=== PATIENT | female | born 1935 | race Hispanic/Latino ===

== ENCOUNTER 2018-04-13 10:37 | Emergency (ER) | payer OTHER ==
[2018-04-13 12:38] LABS: Absolute Lymphocytes (CBC) 1.1 K/uL (0.7-4.9); Absolute Monocytes 0.5 K/uL (0.1-1.3); Absolute Neutrophil 5.5 K/uL (1.8-8.0); Basophils % 0.8 % (0-1.3); Eosinophils % 4.3 % (0-4.4); MCH 27.6 pg (27.0-35.0); MCV 84.3 fL (80-100); MPV 9.5 fL (7.6-11.3); Monocytes % 6.4 % (3.3-12.3); RBC Red Blood Cell Count 4.27 M/uL (3.86-4.86)
[2018-04-13 12:47] LABS: Urine Blood NEGATIVE (NEG); Urine Glucose NEGATIVE (NEG); Urine Protein NEGATIVE (NEG); Urine Specific Gravity 1.015 (1.005-1.030); Urine pH 5.5 (5.0-7.0)
[2018-04-13 12:50] LABS: Potassium 5.1 mEq/L (3.6-5.0)
--- NOTE | 2018-04-13 12:54 | RAD REPORT ---
EXAM DESCRIPTION: Dwaine Pa And Lat (2 Views)04/13/2018 12:48 pm CLINICAL HISTORY: Chest pain COMPARISON: December 2016 FINDINGS: Bilateral interstitial lung opacities are without obvious change. I suspect most if not a ll are chronic. A lung consolidation is not seen. The heart is mildly enlarged
[2018-04-13 12:56] LABS: Albumin 3.8 g/dL (3.2-5.5); Bilirubin Direct 0.1 mg/dL (0-0.2); Bilirubin Total 0.2 mg/dL (0.3-1.2); Protein, Total 8.4 g/dL (6.0-8.3)
[2018-04-13] MEDS ORDERED: HYDROCODONE/APAP 5/325 MG TAB ONE (13:33)
[2018-04-13 13:54] LABS: Urine Bacteria 20-50 /HPF (<20); Urine Culture Reflex Order REFLEXED; Urine RBC <5 /HPF (NONE SEEN)
--- NOTE | 2018-04-13 16:34 | ER ---
Nurse's Notes [facility] Name: Martha Tobar Age: 82 yrs Sex: Female : 1935 Arrival Date: 04/13/2018 Time: 10:41 Bed 6 Private MD: Raymon Johnson Diagnosis: Urinary tract infection, site not specified;Strain of muscle and tendon of front wall of thorax Presentation: 04/13 10:48 Presenting complaint: Patient states: right side pain under right arm x1 week. Denies sv injury. Daughter reports her O2 sat has been low, they saw their PCP and nothing was done for it. Transition of care: patient was not received from another setting of care. Onset of symptoms was April 06, 2018. 10:48 Method Of Arrival: Ambulatory sv 10:48 Acuity: RIGOBERTO 3 sv 10:49 Risk Assessment: Do you want to hurt yourself or someone else? Patient reports no sv desire to harm self or others. Care prior to arrival: None. 14:24 Initial Sepsis Screen: Does the patient meet any 2 criteria? No. Patient's initial ph sepsis screen is negative. Does the patient have a suspected source of infection? No. Patient's initial sepsis screen is negative. Historical: - Allergies: 10:54 No Known Allergies; sv - Home Meds: 10:54 Metoprolol Tartrate Oral [Active]; amlodipine oral [Active]; letrozole oral oral sv [Active]; Levemir subcutaneous subcutaneous [Active]; Lovastatin Oral [Active]; Metformin Oral [Active]; Omeprazole Oral [Active]; sertraline oral oral [Active]; valsartan oral oral [Active]; Lyrica Oral [Active]; tramadol Oral [Active]; 10:56 duloxetine oral oral [Active]; topiramate oral oral [Active]; sv - PMHx: 10:54 Hypertension; GERD; Diabetes - IDDM; sv 10:56 Depression; sv - PSHx: 10:54 Cholecystectomy; right mastectomy; oophorectomy; sv - Immunization history:: Adult Immunizations up to date. - Social history:: Smoking status: Patient/guardian denies using tobacco, the patient reports quitting approximately 10 years ago. - Ebola Screening: : No symptoms or risks identified at this time. Screenin:35 Abuse screen: Denies threats or abuse. Denies injuries from another. Nutritional ph screening: No deficits noted. Tuberculosis screening: No symptoms or risk factors identified. 15:08 Fall Risk No fall in past 12 months (0 pts). No secondary diagnosis (0 pts). IV access ph (20 points). Ambulatory Aid- Crutches/Cane/Walker (15 pts). Gait- Normal/Bed Rest/Wheelchair (0 pts) Mental Status- Oriented to own ability (0 pts). Total Delarosa Fall Scale indicates Low Risk Score (25-44 pts). Fall prevention measures have been instituted. Side Rails Up X 2 Placed close to Nursing Station Frequent Obs/Assesments occuring Family Present and informed to notify staff if they need to leave bedside As available Patient and Family Educated on Fall Prevention Program and strategies. Assessment: 12:00 General: Appears in no apparent distress. comfortable, well groomed, Behavior is calm, ph cooperative, appropriate for age, Denies fever, feeling ill. Pain: Complains of pain in right lateral anterior chest. Neuro: Level of Consciousness is awake, alert, obeys commands, Oriented to person, place, time, situation. Cardiovascular: Capillary refill < 3 seconds Patient's skin is warm and dry. Respiratory: Airway is patent Respiratory effort is even, unlabored, Respiratory pattern is regular, symmetrical, Denies cough, shortness of breath. GI: No signs and/or symptoms were reported involving the gastrointestinal system. Derm: Skin is intact, is healthy with good turgor, Skin is pink, warm \T\ dry. Musculoskeletal: Circulation, motion, and sensation intact. Range of motion: intact in all extremities, Swelling absent. 13:30 Reassessment: Patient appears in no apparent distress at this time. Patient and/or ph family updated on plan of care and expected duration. Pain level reassessed. Patient is alert, oriented x 3, equal unlabored respirations, skin warm/dry/pink. 14:30 Reassessment: Patient appears in no apparent distress at this time. Patient and/or ph family updated on plan of care and expected duration. Pain level reassessed. Patient is alert, oriented x 3, equal unlabored respirations, skin warm/dry/pink. 15:30 Reassessment: Patient appears in no apparent distress at this time. Patient and/or ph family updated on plan of care and expected duration. Pain level reassessed. Patient is alert, oriented x 3, equal unlabored respirations, skin warm/dry/pink. 16:57 Reassessment: Patient appears in no apparent distress at this time. Patient and/or ph family updated on plan of care and expected duration. Pain level reassessed. Patient is alert, oriented x 3, equal unlabored respirations, skin warm/dry/pink. Pt discharged home with family. Vital Signs: 10:54 BP 134 / 92; Pulse 62; Resp 20; Pulse Ox 94% on R/A; Weight 77.56 kg; Height 5 ft. 0 sv in. (152.40 cm); 13:38 BP 140 / 56; Pulse 62; Resp 18; Pulse Ox 91% on R/A; ph 15:07 BP 143 / 55; Pulse 55; Resp 18; Pulse Ox 99% on 2 lpm NC; ph 16:00 BP 142 / 54; Pulse 56; Resp 18; Pulse Ox 98% on 2 lpm NC; ph 16:58 BP 139 / 56; Pulse 54; Resp 16; Temp 97.9; Pulse Ox 95% on R/A; ph 10:54 Body Mass Index 33.39 (77.56 kg, 152.40 cm) sv ED Course: 10:41 Patient arrived in ED. sb2 10:41 Raymon Johnson MD is Private Physician. sb2 10:51 Triage completed. sv 11:44 Kaveh Wisdom, KAREY is PHCP. pm1 11:44 Benjamin Valladares MD is Attending Physician. pm1 11:58 Florinda Diaz, RN is Primary Nurse. ph 12:25 Initial lab(s) drawn, by la, sent to lab. Inserted saline lock: 22 gauge in left dh3 antecubital area, using aseptic technique. Blood collected. 12:35 Arm band placed on. ph 12:35 Patient has correct armband on for positive identification. Placed in gown. Bed in low ph position. Call light in reach. Side rails up X 1. Pulse ox on. NIBP on. Warm blanket given. 12:39 Urine collected: hat, rody. dh3 12:46 X-ray completed. Patient tolerated procedure well. la2 12:46 Chest Pa And Lat (2 Views) XRAY In Process Unspecified. EDMS 16:33 Raymon Johnson MD is Referral Physician. pm1 17:00 No provider procedures requiring assistance completed. IV discontinued, intact, ph bleeding controlled, No redness/swelling at site. Pressure dressing applied. Administered Medications: 13:37 Drug: HYDROcodone-acetaminophen 5 mg-325 mg 1 tabs Route: PO; ph 16:56 Follow up: Response: No adverse reaction ph 16:56 Drug: Kayexalate 30 grams Route: PO; ph 16:56 Follow up: Response: No adverse reaction ph Outcome: 16:33 Discharge ordered by . pm1 16:59 Patient left the ED. ph 17:00 Discharged to home ambulatory, with family. ph 17:00 Condition: good 17:00 Discharge instructions given to patient, family, Instructed on discharge instructions, follow up and referral plans. medication usage, Demonstrated understanding of instructions, follow-up care, medications, Prescriptions given X 1. Addendum: 04/16/2018 09:40 Addendum: Culture Results: Positive urine culture. No further action required. Bacteria i w sensitive to prescribed antibiotic. Signatures: Dispatcher [employer] EDBrianna Cruz RN RN sv Williams, Irene, RN RN Florinda Diaz RN RN ph Kaveh Wisdom, KAREY INPATIENT PHARMACIST pm1 Kimber Tovar 3 Deann Whittaker2 Joann Ramirez sb2 Corrections: (The following items were deleted from the chart) 04/13 10:56 10:54 BP 134 / 92; Pulse 62bpm; Resp 20bpm; Pulse Ox 92% RA; 77.56 kg; Height 5 ft. 0 sv in.; BMI: 33.4; sv 16:59 15:07 BP 143 / 55; Pulse 55bpm; Resp 18bpm; Pulse Ox 99% RA; ph ph
--- NOTE | 2018-04-13 16:34 | EDPHYS ---
Physician Documentation [facility] Name: Martha Tobar Age: 82 yrs Sex: Female : 1935 Arrival Date: 04/13/2018 Time: 10:41 Bed 6 Private MD: Raymon Johnson ED Physician Benjamin Valladares HPI: 04/13 13:00 This 82 yrs old Female presents to ER via Ambulatory with complaints of Right pm1 Side Pain. 13:00 This 82 yrs old Female presents to ER via Ambulatory with complaints of Right pm1 lower rib Pain. 13:00 Onset: The symptoms/episode began/occurred 3 week(s) ago. Associated signs and pm1 symptoms: Pertinent positives: Pertinent negatives: chest pain, cough, diarrhea, fever, shortness of breath. Modifying factors: The patient symptoms are alleviated by nothing, the patient symptoms are aggravated by movement of right arm and palpation. The patient has been recently seen by a physician: the patient's primary care provider. Historical: - Allergies: 10:54 No Known Allergies; sv - Home Meds: 10:54 Metoprolol Tartrate Oral [Active]; amlodipine oral [Active]; letrozole oral oral sv [Active]; Levemir subcutaneous subcutaneous [Active]; Lovastatin Oral [Active]; Metformin Oral [Active]; Omeprazole Oral [Active]; sertraline oral oral [Active]; valsartan oral oral [Active]; Lyrica Oral [Active]; tramadol Oral [Active]; 10:56 duloxetine oral oral [Active]; topiramate oral oral [Active]; sv - PMHx: 10:54 Hypertension; GERD; Diabetes - IDDM; sv 10:56 Depression; sv - PSHx: 10:54 Cholecystectomy; right mastectomy; oophorectomy; sv - Immunization history:: Adult Immunizations up to date. - Social history:: Smoking status: Patient/guardian denies using tobacco, the patient reports quitting approximately 10 years ago. - Ebola Screening: : No symptoms or risks identified at this time. ROS: 13:00 Constitutional: Negative for fever, chills, and weight loss, Eyes: Negative for injury, pm1 pain, redness, and discharge, ENT: Negative for injury, pain, and discharge, Neck: Negative for injury, pain, and swelling, Respiratory: Negative for shortness of breath, cough, wheezing, and pleuritic chest pain, Abdomen/GI: Negative for abdominal pain, nausea, vomiting, diarrhea, and constipation. 13:00 Back: Negative for injury and pain, MS/Extremity: Negative for injury and deformity, Skin: Negative for injury, rash, and discoloration, Neuro: Negative for headache, weakness, numbness, tingling, and seizure. 13:00 Cardiovascular: Negative for chest pain, edema, palpitations. Exam: 13:00 Constitutional: This is a well developed, well nourished patient who is awake, alert, pm1 and in no acute distress. Head/Face: Normocephalic, atraumatic. Eyes: Pupils equal round and reactive to light, extra-ocular motions intact. Lids and lashes normal. Conjunctiva and sclera are non-icteric and not injected. Cornea within normal limits. Periorbital areas with no swelling, redness, or edema. ENT: Nares patent. No nasal discharge, no septal abnormalities noted. Tympanic membranes are normal and external auditory canals are clear. Oropharynx with no redness, swelling, or masses, exudates, or evidence of obstruction, uvula midline. Mucous membranes moist. Neck: Trachea midline, no thyromegaly or masses palpated, and no cervical lymphadenopathy. Supple, full range of motion without nuchal rigidity, or vertebral point tenderness. No Meningismus. 13:00 Cardiovascular: Regular rate and rhythm with a normal S1 and S2. No gallops, murmurs, or rubs. Normal PMI, no JVD. No pulse deficits. Respiratory: Lungs have equal breath sounds bilaterally, clear to auscultation and percussion. No rales, rhonchi or wheezes noted. No increased work of breathing, no retractions or nasal flaring. Abdomen/GI: Soft, non-tender, with normal bowel sounds. No distension or tympany. No guarding or rebound. No evidence of tenderness throughout. Back: No spinal tenderness. No costovertebral tenderness. Full range of motion. Skin: Warm, dry with normal turgor. Normal color with no rashes, no lesions, and no evidence of cellulitis. MS/ Extremity: Pulses equal, no cyanosis. Neurovascular intact. Full, normal range of motion. 13:00 Chest/axilla: Inspection: right mastectomy , Palpation: tenderness, of the right breast area, that totally reproduces the patient's complaints. 13:00 Neuro: Orientation: is normal, Motor: is normal, moves all fours, strength is normal, strength is 5/5 in all extremities, Gait: is steady, at a normal pace, without difficulty. Vital Signs: 10:54 BP 134 / 92; Pulse 62; Resp 20; Pulse Ox 94% on R/A; Weight 77.56 kg; Height 5 ft. 0 sv in. (152.40 cm); 13:38 BP 140 / 56; Pulse 62; Resp 18; Pulse Ox 91% on R/A; ph 15:07 BP 143 / 55; Pulse 55; Resp 18; Pulse Ox 99% on 2 lpm NC; ph 16:00 BP 142 / 54; Pulse 56; Resp 18; Pulse Ox 98% on 2 lpm NC; ph 16:58 BP 139 / 56; Pulse 54; Resp 16; Temp 97.9; Pulse Ox 95% on R/A; ph 10:54 Body Mass Index 33.39 (77.56 kg, 152.40 cm) sv MDM: 12:06 Patient medically screened. pm1 16:30 ED course: Hyperkalemia 5.1 on 3.6 to 5.0 range likely related to mild prerenal pm1 azotemia or use of ARB for blood pressure management. Patient drinks only 2 bottles of water daily. Patient offered IV fluids bur patient refused. She wants to go home and reports that she will drink more water. 16:32 Data reviewed: vital signs. Data interpreted: Pulse oximetry: on room air is 99 %. pm1 Interpretation: normal. Counseling: I had a detailed discussion with the patient and/or guardian regarding: the historical points, exam findings, and any diagnostic results supporting the discharge/admit diagnosis, lab results, radiology results, the need for outpatient follow up, to return to the emergency department if symptoms worsen or persist or if there are any questions or concerns that arise at home. 04/13 12:07 Order name: Basic Metabolic Panel; Complete Time: 13:50 pm1 04/13 12:07 Order name: CBC with Diff; Complete Time: 12:59 pm1 04/13 12:07 Order name: Hepatic Function; Complete Time: 13:50 pm1 04/13 12:07 Order name: Lipase; Complete Time: 13:50 pm1 04/13 12:07 Order name: Urine Microscopic Only; Complete Time: 16:10 pm1 04/13 12:43 Order name: Urine Dipstick--Ancillary (enter results); Complete Time: 12:59 em1 04/13 12:07 Order name: IV Saline Lock; Complete Time: 12:26 pm1 04/13 12:07 Order name: Labs collected and sent; Complete Time: 12:26 pm1 04/13 12:07 Order name: Urine Dipstick-Ancillary (obtain specimen); Complete Time: 12:40 pm1 04/13 12:07 Order name: Chest Pa And Lat (2 Views) XRAY; Complete Time: 12:59 pm1 04/13 13:55 Order name: Urine Culture EDMS Administered Medications: 13:37 Drug: HYDROcodone-acetaminophen 5 mg-325 mg 1 tabs Route: PO; ph 16:56 Follow up: Response: No adverse reaction ph 16:56 Drug: Kayexalate 30 grams Route: PO; ph 16:56 Follow up: Response: No adverse reaction ph Disposition: 19:01 Co-signature as Attending Physician, Benjamin Valladares MD. Disposition: 04/13/18 16:33 Discharged to Home. Impression: Urinary tract infection, site not specified, Strain of muscle and tendon of front wall of thorax. - Condition is Stable. - Discharge Instructions: Hyperkalemia, Muscle Strain, Urinary Tract Infection. - Prescriptions for Bactrim DS 800- 160 mg Oral Tablet - take 1 tablet by ORAL route every 12 hours for 10 days; 20 tablet. - Medication Reconciliation Form, Thank You Letter, Antibiotic Education form. - Follow up: Emergency Department; When: As needed; Reason: Worsening of condition. Follow up: Raymon Johnson MD; When: 2 - 3 days; Reason: Recheck today's complaints, Continuance of care, Re-evaluation by your physician. - Problem is new. - Symptoms have improved. Signatures: Dispatcher [employer] EDMS Brianna Rogers RN RN sv Hall, Patricia, RN RN ph Kaveh Wisdom, [employer] CERTIFIED ORTHOTIST [employer] CERTIFIED ORTHOTIST pm1 Benjamin Valladares MD MD Corrections: (The following items were deleted from the chart) 16:35 16:33 04/13/2018 16:33 Discharged to Home. Impression: Urinary tract infection, site pm1 not specified. Condition is Stable. Forms are Medication Reconciliation Form, Thank You Letter, Antibiotic Education, Prescription Opioid Use. Follow up: Emergency Department; When: As needed; Reason: Worsening of condition. Follow up: Raymon Johnson; When: 2 - 3 days; Reason: Recheck today's complaints, Continuance of care, Re-evaluation by your physician. Problem is new. Symptoms have improved. pm1 16:59 16:35 04/13/2018 16:33 Discharged to Home. Impression: Urinary tract infection, site ph not specified; Strain of muscle and tendon of front wall of thorax. Condition is Stable. Discharge Instructions: Urinary Tract Infection. Prescriptions for Bactrim DS 800-160 mg Oral Tablet - take 1 tablet by ORAL route every 12 hours for 10 days; 20 tablet. and Forms are Medication Reconciliation Form, Thank You Letter, Antibiotic Education. Follow up: Emergency Department; When: As needed; Reason: Worsening of condition. Follow up: Raymon Johnson; When: 2 - 3 days; Reason: Recheck today's complaints, Continuance of care, Re-evaluation by your physician. Problem is new. Symptoms have improved. pm1
[2018-04-13] MEDS ORDERED: SOD POLYSTYREN SUL 15 GM/60 ML UCUP ONE (16:51)
== END 2018-04-13 16:59 | disposition home or self-care (01) ==
LOC: ER 10:37
DX: S29.011A Strain of muscle and tendon of front wall of thorax, initial encounter (principal); N39.0 Urinary tract infection, site not specified; I10 Essential (primary) hypertension; E11.9 Type 2 diabetes mellitus without complications; F32.9 Major depressive disorder, single episode, unspecified; Z79.4 Long term (current) use of insulin; Z90.11 Acquired absence of right breast and nipple
CPT/HCPCS: 36415; 71046; 80048; 80076; 81003; 81015; 83690; 85025; 87077; 87086; 87088; 87186; 99284

== ENCOUNTER 2018-08-21 19:09 | Emergency (ER) | payer OTHER ==
[2018-08-21 21:41] LABS: Urine Blood TRACE (NEG); Urine Glucose NEGATIVE (NEG); Urine Protein NEGATIVE (NEG); Urine pH 5.5 (5.0-7.0)
[2018-08-21 21:59] LABS: Urine Bacteria >50 /HPF (<20); Urine Culture Reflex Order REFLEXED
[2018-08-21] MEDS ORDERED: CEFTRIAXONE 1000 MG/VIAL ONE (22:35)
[2018-08-21] MEDS ORDERED: LIDOCAINE 1% MPF 2 ML AMPULE ONE (22:35)
--- NOTE | 2018-08-21 23:35 | EDPHYS ---
Physician Documentation [facility] Name: Martha Tobar Age: 83 yrs Sex: Female : 1935 Arrival Date: 08/21/2018 Time: 19:12 Bed 26 Private MD: Raymon Johnson ED Physician Toño Murillo HPI: 08/21 21:20 This 83 yrs old Female presents to ER via Ambulatory with complaints of cp Urinary Retention. 21:20 The patient presents with urinary symptoms, dysuria, frequency, urinary retention. cp 21:20 Onset: The symptoms/episode began/occurred this morning. Associated signs and symptoms: cp Pertinent negatives: fever, back pain, abdominal pain. Severity of symptoms: in the emergency department the symptoms have improved, mildly. Historical: - Allergies: 19:38 No Known Allergies; aj1 - Home Meds: 19:38 amlodipine oral [Active]; Levemir subcutaneous [Active]; letrozole Oral [Active]; aj1 Lovastatin Oral [Active]; Metoprolol Tartrate Oral [Active]; Omeprazole Oral [Active]; topiramate Oral [Active]; duloxetine Oral [Active]; Metformin Oral [Active]; Meclizine Oral [Active]; - PMHx: 19:38 Depression; Diabetes - IDDM; GERD; Hypertension; aj1 - Immunization history:: Flu vaccine is not up to date. - Social history:: Smoking status: Patient/guardian denies using tobacco. - Ebola Screening: : Patient denies travel to an Ebola-affected area in the 21 days before illness onset. ROS: 21:25 Constitutional: Negative for body aches, chills, fever, poor PO intake. cp 21:25 Eyes: Negative for injury, pain, redness, and discharge. cp 21:25 ENT: Negative for drainage from ear(s), ear pain, sore throat, difficulty swallowing, difficulty handling secretions. 21:25 Cardiovascular: Negative for chest pain, edema, palpitations. 21:25 Respiratory: Negative for cough, shortness of breath, wheezing. 21:25 Abdomen/GI: Negative for abdominal pain, nausea, vomiting, and diarrhea. 21:25 Back: Negative for pain at rest, pain with movement, radiated pain. 21:25 : Positive for urinary symptoms. 21:25 All other systems are negative. Exam: 21:30 Constitutional: The patient appears in no acute distress, alert, awake, non-toxic, well cp developed, well nourished. 21:30 Head/Face: Normocephalic, atraumatic. cp 21:30 Eyes: Periorbital structures: appear normal, Conjunctiva: normal, Sclera: no appreciated abnormality, Lids and lashes: appear normal, bilaterally. 21:30 ENT: External ear(s): are unremarkable, Nose: is normal, Mouth: is normal. 21:30 Chest/axilla: Inspection: normal. 21:30 Cardiovascular: Rate: normal, Rhythm: regular. 21:30 Respiratory: the patient does not display signs of respiratory distress, Respirations: normal, no use of accessory muscles, no retractions, no splinting, no tachypnea. 21:30 Abdomen/GI: Inspection: abdomen appears normal, Palpation: abdomen is soft and non-tender, in all quadrants. 21:30 Back: pain, is absent, ROM is normal. 21:30 Skin: cellulitis, is not appreciated, no rash present. 21:30 Neuro: Orientation: to person, place \T\ time. Mentation: lucid, able to follow commands, Cerebellar function: is grossly normal, Motor: moves all fours, strength is normal, Sensation: no obvious gross deficits. Vital Signs: 19:38 BP 150 / 59; Pulse 68; Resp 20; Temp 97.2; Pulse Ox 95% on R/A; Weight 74.84 kg (R); aj1 Height 5 ft. 1 in. (154.94 cm); Pain 0/10; 22:54 BP 164 / 62; Pulse 66; Resp 18; Pulse Ox 96% on R/A; kr2 19:38 Body Mass Index 31.18 (74.84 kg, 154.94 cm) aj1 MDM: 20:45 Patient medically screened. cp 22:00 Differential diagnosis: urinary tract infection, sepsis, pyelonephritis. cp 22:20 Data reviewed: vital signs, nurses notes, lab test result(s), and as a result, I will cp discharge patient. 22:20 Counseling: I had a detailed discussion with the patient and/or guardian regarding: the cp historical points, exam findings, and any diagnostic results supporting the discharge/admit diagnosis, lab results, to return to the emergency department if symptoms worsen or persist or if there are any questions or concerns that arise at home. 08/21 21:16 Order name: Urine Microscopic Only; Complete Time: 22:20 cp 08/21 21:19 Order name: Urine Dipstick--Ancillary (enter results); Complete Time: 21:57 mt 08/21 21:57 Interpretation: Normal except: UBLD TRACE; U NIT POSITIVE; UESTR TRACE. cp 08/21 21:16 Order name: Bladder Scanner: pre and post void; Complete Time: 21:58 cp 08/21 22:01 Order name: Urine Culture [facility] 08/21 21:16 Order name: Urine Dipstick-Ancillary (obtain specimen); Complete Time: 21:19 cp Administered Medications: 22:35 Drug: Rocephin (cefTRIAXone) 1 grams Route: IM; Site: right gluteus; kr2 22:55 Follow up: Response: No adverse reaction kr2 Disposition: 08/21/18 22:22 Discharged to Home. Impression: Urinary tract infection, site not specified. - Condition is Stable. - Discharge Instructions: Urinary Tract Infection, Adult. - Prescriptions for Cephalexin 500 mg Oral Capsule - take 1 capsule by ORAL route every 8 hours for 10 days; 30 capsule. - Medication Reconciliation Form, Thank You Letter, Antibiotic Education, Prescription Opioid Use form. - Follow up: Raymon Johnson MD; When: 2 - 3 days; Reason: Recheck today's complaints. - Problem is new. - Symptoms have improved. Addendum: 08/27/2018 09:46 Co-signature as Attending Physician, Toño Murillo MD available for consultation at p s1 all times . Signatures: Dispatcher [employer] [facility] Lorena Shetty RN RN aj1 Sin Boyer PA PA cp Maty Mason, TAMY RN kr2 Toño Murillo MD MD ps1 Corrections: (The following items were deleted from the chart) 08/21 22:56 22:22 08/21/2018 22:22 Discharged to Home. Impression: Urinary tract infection, site kr2 not specified. Condition is Stable. Forms are Medication Reconciliation Form, Thank You Letter, Antibiotic Education, Prescription Opioid Use. Follow up: Raymon Johnson; When: 2 - 3 days; Reason: Recheck today's complaints. Problem is new. Symptoms have improved. cp
--- NOTE | 2018-08-21 23:35 | ER ---
Nurse's Notes [facility] Name: Martha Tobar Age: 83 yrs Sex: Female : 1935 Arrival Date: 08/21/2018 Time: 19:12 Bed 26 Private MD: Raymon Johnson Diagnosis: Urinary tract infection, site not specified Presentation: 08/21 19:35 Presenting complaint: Child states: "She's complaining that she can't pee, it's aj1 hurting." Denies fever. Reports dysuria and urinary frequency. Transition of care: patient was not received from another setting of care. Onset of symptoms was August 21, 2018. Risk Assessment: Do you want to hurt yourself or someone else? Patient reports no desire to harm self or others. Initial Sepsis Screen: Does the patient meet any 2 criteria? No. Patient's initial sepsis screen is negative. Does the patient have a suspected source of infection? Yes: Dysuria/Frequency/Urgency/UTI. Care prior to arrival: None. 19:35 Method Of Arrival: Ambulatory aj1 19:35 Acuity: RIGOBERTO 4 aj1 Triage Assessment: 19:38 General: Appears in no apparent distress. comfortable, Behavior is calm, cooperative, aj1 appropriate for age. Pain: Denies pain. Neuro: Level of Consciousness is awake, alert, obeys commands. Cardiovascular: Patient's skin is warm and dry. Respiratory: Airway is patent Respiratory effort is even, unlabored, Respiratory pattern is regular, symmetrical. : Reports burning with urination, urinary frequency. Historical: - Allergies: 19:38 No Known Allergies; aj1 - Home Meds: 19:38 amlodipine oral [Active]; Levemir subcutaneous [Active]; letrozole Oral [Active]; aj1 Lovastatin Oral [Active]; Metoprolol Tartrate Oral [Active]; Omeprazole Oral [Active]; topiramate Oral [Active]; duloxetine Oral [Active]; Metformin Oral [Active]; Meclizine Oral [Active]; - PMHx: 19:38 Depression; Diabetes - IDDM; GERD; Hypertension; aj1 - Immunization history:: Flu vaccine is not up to date. - Social history:: Smoking status: Patient/guardian denies using tobacco. - Ebola Screening: : Patient denies travel to an Ebola-affected area in the 21 days before illness onset. Screenin:00 Abuse screen: Denies threats or abuse. Denies injuries from another. Nutritional kr2 screening: No deficits noted. Tuberculosis screening: No symptoms or risk factors identified. Fall Risk None identified. Assessment: 21:00 Reassessment: Patient urinated upon arrival to room before bladder scan ordered, kr2 provider notified and says to just get a post void scan. 21:00 General: Appears in no apparent distress. comfortable, well groomed, Behavior is calm, kr2 cooperative, appropriate for age. Pain: Denies pain. Neuro: Level of Consciousness is awake, alert, obeys commands, Oriented to person, place, time, situation, Appropriate for age. Cardiovascular: Capillary refill < 3 seconds in bilateral fingers Patient's skin is warm and dry. Respiratory: Airway is patent Respiratory effort is even, unlabored, Respiratory pattern is regular, symmetrical. GI: Abdomen is flat, non-distended, Bowel sounds present X 4 quads. Abd is soft and non tender X 4 quads. : Reports burning with urination, since this afternoon Denies inability to void. EENT: Oral mucosa is moist. Derm: Skin is intact, is fragile, Skin is. Musculoskeletal: Circulation, motion, and sensation intact. 22:00 Reassessment: Bladder scan completed, patient denies pain during scan and with kr2 palpation of lower abdomen and suprapubic area. 22:54 Reassessment: Patient appears in no apparent distress at this time. Patient and/or kr2 family updated on plan of care and expected duration. Pain level reassessed. Patient is alert, oriented x 3, equal unlabored respirations, skin warm/dry/pink. Patient denies pain at this time. Vital Signs: 19:38 BP 150 / 59; Pulse 68; Resp 20; Temp 97.2; Pulse Ox 95% on R/A; Weight 74.84 kg (R); aj1 Height 5 ft. 1 in. (154.94 cm); Pain 0/10; 22:54 BP 164 / 62; Pulse 66; Resp 18; Pulse Ox 96% on R/A; kr2 19:38 Body Mass Index 31.18 (74.84 kg, 154.94 cm) aj1 ED Course: 19:12 Patient arrived in ED. ds1 19:13 Raymon Johnson MD is Private Physician. ds1 19:37 Triage completed. aj1 19:40 Arm band placed on Patient placed in waiting room, Patient notified of wait time. aj1 20:45 Sin Boyer PA is PHCP. cp 20:45 Toño Murillo MD is Attending Physician. cp 21:18 Maty Mason, RN is Primary Nurse. kr2 21:19 Urine collected: clean catch specimen, Amount Voided: 100mL. kr2 21:20 Bed in low position. Call light in reach. Side rails up X 1. jp3 21:20 Pulse ox on. NIBP on. jp3 21:38 Urine Microscopic Only Sent. jp3 21:38 Urine Dipstick--Ancillary (enter results) Sent. jp3 21:59 Urine Microscopic Only Sent. jb4 21:59 Bladder scan completed. Patient scanned x 3, each scan showed 0 mL of urine in bladder, kr2 provider Josesito notified, no new orders. 22:21 Raymon Johnson MD is Referral Physician. cp 22:43 Urine Culture Sent. jb4 22:55 No provider procedures requiring assistance completed. Patient did not have IV access kr2 during this emergency room visit. Administered Medications: 22:35 Drug: Rocephin (cefTRIAXone) 1 grams Route: IM; Site: right gluteus; kr2 22:55 Follow up: Response: No adverse reaction kr2 Outcome: 22:22 Discharge ordered by . cp 22:56 Discharged to home ambulatory, with family. kr2 22:56 Condition: good 22:56 Discharge instructions given to patient, family, Instructed on discharge instructions, follow up and referral plans. medication usage, Demonstrated understanding of instructions, follow-up care, medications, Prescriptions given X 1. 22:56 Patient left the ED. kr2 Addendum: 08/24/2018 14:07 Addendum: Culture Results: Positive urine culture. No further action required. Other: a a5 no need to change antibiotic, continue taking Cephalexin, Culture is sensitive to other cephalosporins per DENISE Leiva. Signatures: Lorena Shetty RN RN aj1 Idalia Fuentes ds1 Mariaa Fox RN RN aa5 Sin Boyer PA PA cp Ole Hughes RN RN jb4 Maty Mason RN RN kr2 Gabriel Ham jp3 Corrections: (The following items were deleted from the chart) 08/21 19:40 19:38 Arm band placed on Patient placed in an exam room, aj1 aj1
== END 2018-08-21 22:56 | disposition home or self-care (01) ==
LOC: ER 19:09
DX: N39.0 Urinary tract infection, site not specified (principal); I10 Essential (primary) hypertension; E11.9 Type 2 diabetes mellitus without complications
CPT/HCPCS: 87077; 87086; 87088; 87186; 96372; 99284; J2001; 81003; 81015

== ENCOUNTER 2019-03-06 11:13 | Emergency (ER) | payer OTHER ==
[2019-03-06 13:10] LABS: Absolute Lymphocytes (CBC) 1.6 K/uL (0.7-4.9); Absolute Monocytes 0.6 K/uL (0.1-1.3); Absolute Neutrophil 4.1 K/uL (1.8-8.0); Basophils % 0.9 % (0-1.3); Eosinophils % 3.6 % (0-4.4); Hematocrit 37.9 % (36.0-45.0); Lymphocytes % 24.2 % (15.3-44.8); MPV 9.6 fL (7.6-11.3); Monocytes % 8.8 % (3.3-12.3); RBC Red Blood Cell Count 4.42 M/uL (3.86-4.86)
[2019-03-06 13:11] LABS: Protime INR 1.21
[2019-03-06 13:38] LABS: ALT/SGPT 16 U/L (12-78); AST/SGOT 12 U/L (15-37); Albumin 3.4 g/dL (3.4-5.0); Alkaline Phosphatase 99 U/L (45-117); BUN Blood Urea Nitrogen 17 mg/dL (7-18); Bicarbonate 24 mmol/L (21-32); Bilirubin Direct 0.2 mg/dL (0-0.2); Bilirubin Total 0.7 mg/dL (0.2-1.0); Glucose Level 142 mg/dL (74-106); Magnesium 1.8 mg/dL (1.8-2.4); NT PRO-BNP 350 pg/mL (<450); Potassium 4.1 mmol/L (3.5-5.1); Protein, Total 8.6 g/dL (6.4-8.2); Sodium Level 134 mmol/L (136-145); Troponin (Emerg Dept Use Only) < 0.02 ng/mL (0.0-0.045)
[2019-03-06] MEDS ORDERED: CEFTRIAXONE/SWI 1gm 1 GM/10 ML SYR ONE (13:47)
--- NOTE | 2019-03-06 13:48 | RAD REPORT ---
EXAM DESCRIPTION: CT - Head Brain Wo Cont - 03/06/2019 1:35 pm CLINICAL HISTORY: Transient alteration of awareness COMPARISON: None. TECHNIQUE: Axial 5 mm thick images of the head were obtained without IV contrast. All CT scans are performed using dose optimization technique as appropriate and may include automated exposure control or mA/KV adjustment according to patient size. FINDINGS: No intracranial hemorrhage, mass, edema or shift of mid-line structures. No acute infarcti on changes seen. No cortical edema or sulcal effacement. Moderate severity atrophy and chronic ischem ic changes are present. Ventricles are in proportion. Arterial and physiologic calcifications are pre sent. Mastoid air cells and visualized portions of the paranasal sinuses are clear. No acute bony findings. IMPRESSION: Moderate severity atrophy and chronic ischemic change with no acute intracranial finding seen. Chronic ischemic changes can mask nonhemorrhagic acute infarction. MR brain followup can be obtained if there is ongoing concern for acute ischemia.
[2019-03-06 13:55] LABS: Urine Blood TRACE (NEG); Urine Glucose NEGATIVE (NEG); Urine Protein 1+ (NEG); Urine Specific Gravity 1.025 (1.005-1.030)
--- NOTE | 2019-03-06 14:02 | EDPHYS ---
Physician Documentation [facility] Name: Martha Tobar Age: 83 yrs Sex: Female : 1935 Arrival Date: 03/06/2019 Time: 11:14 Bed 23 Private MD: ED Physician Yon Bush HPI: 03/06 13:21 This 83 yrs old Female presents to ER via Wheelchair with complaints of kdr Dizziness. 13:21 The patient presents with dizziness, generalized weakness. Onset: The symptoms/episode kdr began/occurred gradually, 3 day(s) ago. Context: occurred. 13:30 Modifying factors: The symptoms are alleviated by nothing, the symptoms are aggravated kdr by nothing. Associated signs and symptoms: Pertinent positives: confusion, The family states that the patient has been confused and not talking right for the last three days. She c/o dizziness but has not been obviously off balance or otherwise acting dizzy. Severity of symptoms: At their worst the symptoms were mild in the emergency department the symptoms are unchanged. Patient's baseline: Neuro: alert and fully oriented, Motor: no deficits, Ambulation: walks without assistance, Speech: normal for age. The patient has experienced a previous episode, last year. The patient has not recently seen a physician. Historical: - Allergies: 11:23 No Known Allergies; hj - PMHx: 11:23 Depression; Diabetes - IDDM; GERD; Hypertension; hj - PSHx: 11:23 None; hj - Immunization history:: Adult Immunizations up to date. - Social history:: Smoking status: Patient/guardian denies using tobacco. - Ebola Screening: : Patient denies exposure to infectious person Patient denies travel to an Ebola-affected area in the 21 days before illness onset. ROS: 13:30 Constitutional: Negative for fever, chills, and weight loss, Eyes: Negative for injury, kdr pain, redness, and discharge, ENT: Negative for injury, pain, and discharge, Neck: Negative for injury, pain, and swelling, Cardiovascular: Negative for chest pain, palpitations, and edema, Respiratory: Negative for shortness of breath, cough, wheezing, and pleuritic chest pain, Abdomen/GI: Negative for abdominal pain, nausea, vomiting, diarrhea, and constipation, Back: Negative for injury and pain, : Negative for injury, bleeding, discharge, and swelling, - family notes dark urine similar to when she had a prior UTI MS/Extremity: Negative for injury and deformity, Skin: Negative for injury, rash, and discoloration, Neuro: Negative for headache, weakness, numbness, tingling, and seizure activity. She has subjectively reported dizziness to her family and has been taking her meclizine - family does not note any obvious signs of dissiness Psych: Negative for depression, anxiety, suicide ideation, homicidal ideation, and hallucinations, Allergy/Immunology: Negative for hives, rash, and allergies, Endocrine: Negative for neck swelling, polydipsia, polyuria, polyphagia, and marked weight changes, Hematologic/Lymphatic: Negative for swollen nodes, abnormal bleeding, and unusual bruising. Exam: 13:30 Constitutional: This is a well developed, well nourished patient who is awake, alert, kdr and in no acute distress. Head/Face: Normocephalic, atraumatic. Eyes: Pupils equal round and reactive to light, extra-ocular motions intact. Lids and lashes normal. Conjunctiva and sclera are non-icteric and not injected. Cornea within normal limits. Periorbital areas with no swelling, redness, or edema. ENT: Nares patent. No nasal discharge, no septal abnormalities noted. Tympanic membranes are normal and external auditory canals are clear. Oropharynx with no redness, swelling, or masses, exudates, or evidence of obstruction, uvula midline. Mucous membranes moist. Neck: Trachea midline, no thyromegaly or masses palpated, and no cervical lymphadenopathy. Supple, full range of motion without nuchal rigidity, or vertebral point tenderness. No Meningismus. Chest/axilla: Normal chest wall appearance and motion. Nontender with no deformity. No lesions are appreciated. Cardiovascular: Regular rate and rhythm with a normal S1 and S2. No gallops, murmurs, or rubs. Normal PMI, no JVD. No pulse deficits. Respiratory: Lungs have equal breath sounds bilaterally, clear to auscultation and percussion. No rales, rhonchi or wheezes noted. No increased work of breathing, no retractions or nasal flaring. Abdomen/GI: Soft, non-tender, with normal bowel sounds. No distension or tympany. No guarding or rebound. No evidence of tenderness throughout. Back: No spinal tenderness. No costovertebral tenderness. Full range of motion. Skin: Warm, dry with normal turgor. Normal color with no rashes, no lesions, and no evidence of cellulitis. MS/ Extremity: Pulses equal, no cyanosis. Neurovascular intact. Full, normal range of motion. Psych: Awake, alert, with orientation to person, place and time. Behavior, mood, and affect are within normal limits. 13:30 Neuro: Orientation: no acute changes, Mentation: responsive to voice lucid, able to follow commands, Cranial nerves: is grossly normal based on the patient's age, no acute changes, Motor: is normal, Sensation: is normal, Gait: not tested. Vital Signs: 11:23 BP 132 / 66; Pulse 85; Resp 18; Temp 97.2(TE); Pulse Ox 95% on R/A; Weight 79.38 kg; hj Height 5 ft. 2 in. (157.48 cm); 13:15 Pulse Ox 90% on R/A; ss 13:22 Pulse Ox 95% on 2 lpm NC; ss 11:23 Body Mass Index 32.01 (79.38 kg, 157.48 cm) hj 13:15 Daughter states that at many doctor's visits, they mentioned patient's O2 being low, ss but have never said anything other than that. Daughter reports at one time, her RA O2 was in the 70's, but PCP did not seemed concerned. MDM: 13:30 Data reviewed: vital signs, nurses notes, old medical records, radiologic studies. kdr Counseling: I had a detailed discussion with the patient and/or guardian regarding: the historical points, exam findings, and any diagnostic results supporting the discharge/admit diagnosis, lab results, radiology results, the need for outpatient follow up. 14:00 Patient medically screened. kdr 03/06 12:18 Order name: Basic Metabolic Panel; Complete Time: 13:54 kdr 03/06 12:18 Order name: CBC with Diff; Complete Time: 13:54 kdr 03/06 12:18 Order name: LFT's; Complete Time: 13:54 kdr 03/06 12:18 Order name: Magnesium; Complete Time: 13:54 kdr 03/06 12:18 Order name: NT PRO-BNP; Complete Time: 13:54 kdr 03/06 12:18 Order name: PT-INR; Complete Time: 13:54 kdr 03/06 12:18 Order name: Troponin (emerg Dept Use Only); Complete Time: 13:54 kdr 03/06 12:18 Order name: XRAY Chest (1 view) [facility] 03/06 12:18 Order name: EKG; Complete Time: 12:20 kdr 03/06 13:16 Order name: CT Head Brain wo Cont; Complete Time: 13:54 kdr 03/06 13:18 Order name: Urine Culture [facility] 03/06 13:28 Order name: Urine Dipstick--Ancillary (enter results); Complete Time: 13:58 eb 03/06 12:05 Order name: EKG - Nurse/Tech; Complete Time: 13:05 hj 03/06 12:18 Order name: Cardiac monitoring; Complete Time: 13:05 kdr 03/06 12:18 Order name: IV Saline Lock; Complete Time: 13:04 kdr 03/06 12:18 Order name: Labs collected and sent; Complete Time: 13:04 kdr 03/06 12:18 Order name: O2 Per Protocol; Complete Time: 13:04 kdr 03/06 12:18 Order name: O2 Sat Monitoring; Complete Time: 13:04 kdr Administered Medications: 13:29 Not Given (other intervention used per protocol): Rocephin - (cefTRIAXone) 1 grams IVPB ss once over 30 mins; (mix in 50 mL NS) 13:50 Drug: Rocephin 1 grams Route: IV; Rate: calculated rate; Site: left antecubital; ss 13:53 Follow up: IV Status: Completed infusion ss Disposition: 03/06/19 14:00 Discharged to Home. Impression: Urinary tract infection, site not specified, Confusion. - Condition is Stable. - Discharge Instructions: Confusion, Urinary Tract Infection, Adult, [id number]. - Prescriptions for Cipro 500 mg Oral Tablet - take 1 tablet by ORAL route every 12 hours for 10 days; 20 tablet. - Medication Reconciliation Form, Thank You Letter, Antibiotic Education form. - Follow up: Private Physician; When: 2 - 3 days; Reason: If symptoms return, Further diagnostic work-up, Recheck today's complaints, Continuance of care, Re-evaluation by your physician. - Problem is new. - Symptoms are unchanged. Signatures: Dispatcher [employer] EDMS Rittger, Yon, Alma Rogers MD, RN RN ss Zain Mosher RN RN Corrections: (The following items were deleted from the chart) 14:24 14:00 03/06/2019 14:00 Discharged to Home. Impression: Urinary tract infection, site ss not specified; Confusion. Condition is Stable. Forms are Medication Reconciliation Form, Thank You Letter, Antibiotic Education, Prescription Opioid Use. Follow up: Private Physician; When: 2 - 3 days; Reason: If symptoms return, Further diagnostic work-up, Recheck today's complaints, Continuance of care, Re-evaluation by your physician. Problem is new. Symptoms are unchanged. kdr
--- NOTE | 2019-03-06 14:02 | ER ---
Nurse's Notes [facility] Name: Martha Tobar Age: 83 yrs Sex: Female : 1935 Arrival Date: 03/06/2019 Time: 11:14 Bed 23 Private MD: Diagnosis: Urinary tract infection, site not specified;Confusion Presentation: 03/06 11:21 Presenting complaint: Child states: per son, shes been feeling dizzy for the last 3 hj days and been talking non sense for 3 days now; reports headache and lightheaded, reports ear is very heavy; denies fever and chills; denies weakness or numbness in bilateral extremities;. Transition of care: patient was not received from another setting of care. Onset of symptoms was March 06, 2019. Risk Assessment: Do you want to hurt yourself or someone else? Patient reports no desire to harm self or others. Initial Sepsis Screen: Does the patient meet any 2 criteria? No. Patient's initial sepsis screen is negative. Does the patient have a suspected source of infection?. Care prior to arrival: None. 11:21 Method Of Arrival: Wheelchair 11:21 Acuity: RIGOBERTO 3 hj Historical: - Allergies: 11:23 No Known Allergies; hj - PMHx: 11:23 Depression; Diabetes - IDDM; GERD; Hypertension; hj - PSHx: 11:23 None; hj - Immunization history:: Adult Immunizations up to date. - Social history:: Smoking status: Patient/guardian denies using tobacco. - Ebola Screening: : Patient denies exposure to infectious person Patient denies travel to an Ebola-affected area in the 21 days before illness onset. Screenin:05 Abuse screen: Denies threats or abuse. Denies injuries from another. Nutritional ss screening: No deficits noted. Tuberculosis screening: Never had TB. Fall Risk No fall in past 12 months (0 pts). Secondary diagnosis (15 points) dizziness. IV access (20 points). Ambulatory Aid- None/Bed Rest/Nurse Assist (0 pts). Gait- Normal/Bed Rest/Wheelchair (0 pts) Mental Status- Oriented to own ability (0 pts). Assessment: 12:15 General: Appears comfortable, Behavior is cooperative, quiet, Denies fever, feeling ss ill, fatigue, chills. Pain: Denies pain. Neuro: Level of Consciousness is awake, alert, obeys commands, Oriented to person, place, Speech is normal, Pupils are PERRLA, Reports intermittent dizziness x 1 week. Cardiovascular: Capillary refill < 3 seconds is brisk in bilateral fingers Patient's skin is warm and dry. Respiratory: Breath sounds are clear bilaterally. Denies cough, shortness of breath pain with respiration, pain with cough, pain with movement. GI: Abdomen is non-distended, Patient currently denies abdominal pain, diarrhea, nausea, vomiting. : Parent/caregiver report the patient having son reports that patient's urine earlier in the day appeared darkened/ orange and has concerned him that patient may have a UTI. EENT: Nares are clear Oral mucosa is moist. Throat is clear. Derm: Skin is intact, is fragile, is thin, with poor turgor Skin is pink, warm \T\ dry. normal. Musculoskeletal: Circulation, motion, and sensation intact. Range of motion: intact in all extremities, Swelling absent. 13:32 Reassessment: Pt to CT VIA stretcher. ss Vital Signs: 11:23 BP 132 / 66; Pulse 85; Resp 18; Temp 97.2(TE); Pulse Ox 95% on R/A; Weight 79.38 kg; hj Height 5 ft. 2 in. (157.48 cm); 13:15 Pulse Ox 90% on R/A; ss 13:22 Pulse Ox 95% on 2 lpm NC; ss 11:23 Body Mass Index 32.01 (79.38 kg, 157.48 cm) hj 13:15 Daughter states that at many doctor's visits, they mentioned patient's O2 being low, ss but have never said anything other than that. Daughter reports at one time, her RA O2 was in the 70's, but PCP did not seemed concerned. ED Course: 11:14 Patient arrived in ED. as 11:23 Triage completed. hj 11:25 Arm band placed on right wrist. hj 12:12 EKG done, by target aircraft technician. reviewed by Yon Bush MD. sm3 12:17 Yon Bush MD is Attending Physician. kdr 12:30 laboratory monitor on. Pulse ox on. NIBP on. ss 12:45 Inserted saline lock: 22 gauge in left antecubital area, using aseptic technique. Blood ss collected. 13:03 Alma Greer, RN is Primary Nurse. ss 13:05 Patient has correct armband on for positive identification. Bed in low position. Call light in reach. 13:30 CT completed. Patient tolerated procedure well. Patient moved to CT via stretcher. Patient moved back from CT. 13:36 CT Head Brain wo Cont In Process Unspecified. EDMS 13:40 X-ray completed. Portable x-ray completed in exam room. Patient tolerated procedure mh1 well. 13:41 XRAY Chest (1 view) In Process Unspecified. EDMS 14:23 No provider procedures requiring assistance completed. IV discontinued, intact, ss bleeding controlled, No redness/swelling at site. Pressure dressing applied. Administered Medications: 13:29 Not Given (other intervention used per protocol): Rocephin - (cefTRIAXone) 1 grams IVPB once over 30 mins; (mix in 50 mL NS) 13:50 Drug: Rocephin 1 grams Route: IV; Rate: calculated rate; Site: left antecubital; 13:53 Follow up: IV Status: Completed infusion ss Outcome: 14:00 Discharge ordered by . kdr 14:23 Discharged to home with family. ss 14:23 Condition: improved 14:23 Discharge instructions given to patient, family, Instructed on discharge instructions, follow up and referral plans. medication usage, Demonstrated understanding of instructions, follow-up care, medications, Prescriptions given X 1. 14:24 Patient left the ED. ss Addendum: 03/08/2019 07:27 Addendum: Culture Results: Positive urine culture. No further action required. Bacteria i w sensitive to prescribed antibiotic. Signatures: Dispatcher [employer] EDSC Yon Bush MD MD kdr Harvey, Martha 1 Nicole Lopez Amelia as Williams, Irene, TAMY MORELOS Alma Greer, TAMY MORELOS Zain Mosher, Rukhsana Nava RN 3
--- NOTE | 2019-03-06 14:21 | RAD REPORT ---
EXAM DESCRIPTION: RAD - Chest Single View - 03/06/2019 1:41 pm CLINICAL HISTORY: Dizziness, hypertension, shortness of breath COMPARISON: March 2018 TECHNIQUE: AP portable chest image was obtained 1322 hours . FINDINGS: Lungs are extensively fibrotic similar to comparison. No superimposed failure, infiltrate or mass. Heart and vasculature are normal. No measurable pleural effusion and no pneumothorax. Bony d egenerative changes are present with right convex scoliosis. This is similar to comparison. No acute aortic findings suspected. IMPRESSION: Extensive chronic interstitial lung disease is present easily masking early interstitial edema or infiltrate. Chest is not clearly different from comparison. Follow-up can be obtained if the patient shows persis tent or progressive symptoms.
--- NOTE | 2019-03-07 07:14 | EKG ---
Test Date: 2019-03-06 Test Time: 12:12:28 Barrel Charrer Helper: CINDA/S MEASUREMENT RESULTS: Intervals: Rate: 93 LA: 154 QRSD: 96 QT: 368 QTc: 457 [place]: P: 41 LA: 154 QRS: 91 T: 21 INTERPRETIVE STATEMENTS: Normal sinus rhythm Incomplete right bundle branch block Possible Right ventricular hypertrophy Abnormal ECG Compared to ECG 07/20/2016 16:16:40 Incomplete right bundle-branch block now present Myocardial infarct finding no longer present Electronically Signed On 03-07-19 07:11:41 CDT by Eliecer Izaguirre
== END 2019-03-06 14:24 | disposition home or self-care (01) ==
LOC: ER 11:13
DX: N39.0 Urinary tract infection, site not specified (principal); R41.0 Disorientation, unspecified; F32.9 Major depressive disorder, single episode, unspecified; E11.9 Type 2 diabetes mellitus without complications; I10 Essential (primary) hypertension; K21.9 Gastro-esophageal reflux disease without esophagitis
CPT/HCPCS: 93005; 87088; 85025; 87086; 80048; 36415; 83735; 85610; 80076; 87077; 87186; 81003; 84484; 83880; 70450; 71045; 96374; 99285; J0696

== ENCOUNTER 2019-03-10 11:07 | Emergency (ER) | payer OTHER ==
--- NOTE | 2019-03-10 12:17 | RAD REPORT ---
EXAM DESCRIPTION: CT - [id number] - 03/10/2019 11:55 am CLINICAL HISTORY: Trauma, head and neck injury. fall COMPARISON: No comparisons TECHNIQUE: Axial 5 mm thick images of the head were obtained. Axial 2 mm thick images of the cervical spine were obtained with sagittal and coronal reconstruction images generated and reviewed. All CT scans are performed using dose optimization technique as appropriate and may include automated exposure control or mA/KV adjustment according to patient size. FINDINGS: CT HEAD WITHOUT CONTRAST: No acute hemorrhage, hydrocephalus or extra-axial collection is identified.Advanced brain atrophy.No areas of brain edema or midline shift. Sphenoid sinus thickening is noted. Otherwise, the paranasal sinuses and mastoids are clear.The vaibhav rium is intact. CT CERVICAL SPINE WITHOUT CONTRAST: No fracture or subluxation.Moderate lower cervical degenerative changes.No prevertebral soft tissues swelling is identified. Upper lung [place] are emphysematous and fibrotic. IMPRESSION: No acute intracranial or cervical spine findings.
--- NOTE | 2019-03-10 12:26 | RAD REPORT ---
EXAM DESCRIPTION: RAD - Chest Single View - 03/10/2019 12:15 pm CLINICAL HISTORY: fall Chest pain. COMPARISON: Chest Single View dated 03/06/2019; Chest Pa And Lat (2 Views) dated 04/13/2018; CHEST PA A ND LAT 2 VIEW dated 02/20/2012; ABDOMEN ACUTE SERIES dated 08/08/2010 FINDINGS: Portable technique limits examination quality. Emphysematous changes are present throughout the lungs. The heart is upper limit normal in size. No d isplaced fractures.Right axillary dissection clips. Aortic atherosclerosis noted. IMPRESSION: No acute intrathoracic process suspected.
--- NOTE | 2019-03-10 12:28 | RAD REPORT ---
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 No acute fracture or dislocat ion seen.
[2019-03-10 12:44] LABS: Absolute Lymphocytes (CBC) 1.2 K/uL (0.7-4.9); Absolute Monocytes 0.6 K/uL (0.1-1.3); Absolute Neutrophil 5.6 K/uL (1.8-8.0); Basophils % 0.8 % (0-1.3); Eosinophils % 4.6 % (0-4.4); Hematocrit 36.5 % (36.0-45.0); MPV 8.9 fL (7.6-11.3); Monocytes % 7.5 % (3.3-12.3); RBC Red Blood Cell Count 4.19 M/uL (3.86-4.86)
[2019-03-10 13:11] LABS: Albumin 3.3 g/dL (3.4-5.0); Bilirubin Direct 0.2 mg/dL (0-0.2); Bilirubin Total 0.5 mg/dL (0.2-1.0); Protein, Total 8.1 g/dL (6.4-8.2)
[2019-03-10 14:13] LABS: Urine Bacteria <20 /HPF (<20); Urine Culture Reflex Order NOT NEEDED; Urine RBC <5 /HPF (NONE SEEN)
--- NOTE | 2019-03-10 14:29 | ER ---
Nurse's Notes [facility] Name: Martha Tobar Age: 83 yrs Sex: Female : 1935 Arrival Date: 03/10/2019 Time: 11:10 Bed 18 Private MD: Raymon Johnson Diagnosis: Acute Mechanical Fall from Standing;FACIAL BRUISE Presentation: 03/10 11:15 Presenting complaint: Child states: Daughter states pt had an unwitnessed fall on sv Sunday and was found on the ground, denies head injury but noted that she had bruising on her mouth area. c/o BUE pain. Care prior to arrival: None. Mechanism of Injury: Fall from standing position. Trauma event details: Injury occurred in the [facility], Injury occurred: at home. Injury occurred: March 08, 2019. 11:15 Method Of Arrival: Wheelchair sv 11:20 Transition of care: patient was not received from another setting of care. Onset of sv symptoms was March 08, 2019. Initial Sepsis Screen: Does the patient meet any 2 criteria? No. Patient's initial sepsis screen is negative. Does the patient have a suspected source of infection? No. Patient's initial sepsis screen is negative. 11:20 Acuity: RIGOBERTO 2 sv Trauma Activation: Not Applicable Physician: ED Physician; Name: ; Notified At: ; Arrived At: Physician: General Surgeon; Name: ; Notified At: ; Arrived At: Physician: Radiology; Name: ; Notified At: ; Arrived At: Physician: Respiratory; Name: ; Notified At: ; Arrived At: Physician: Lab; Name: ; Notified At: ; Arrived At: Historical: - Allergies: 11:17 No Known Allergies; sv - PMHx: 11:17 Depression; Diabetes - IDDM; GERD; Hypertension; sv - PSHx: 11:17 None; sv - Immunization history:: Adult Immunizations up to date. - Family history:: not pertinent. - Social history:: Smoking status: Patient/guardian denies using tobacco. - Hospitalizations: : No recent hospitalization is reported. - History obtained from: daughter. Screenin:45 Abuse screen: Denies threats or abuse. Denies injuries from another. Nutritional aj1 screening: No deficits noted. Tuberculosis screening: No symptoms or risk factors identified. 14:39 Fall Risk Fall in past 12 months (25 points). Secondary diagnosis (15 points) IV access ss (20 points). Ambulatory Aid- None/Bed Rest/Nurse Assist (0 pts). Gait- Normal/Bed Rest/Wheelchair (0 pts) Mental Status- Oriented to own ability (0 pts). Assessment: 11:45 General: Appears in no apparent distress. uncomfortable, Behavior is calm, cooperative, aj1 appropriate for age. Pain: Complains of pain in anterior aspect of left shoulder and left arm. Neuro: Level of Consciousness is awake, alert, obeys commands. Cardiovascular: Patient's skin is warm and dry. Respiratory: Airway is patent Respiratory effort is even, unlabored, Respiratory pattern is regular, symmetrical. Respiratory: Breath sounds are clear bilaterally. Denies shortness of breath. GI: No signs and/or symptoms were reported involving the gastrointestinal system. : No signs and/or symptoms were reported regarding the genitourinary system. EENT: No signs and/or symptoms were reported regarding the EENT system. Derm: Bruising that is dark purple, on mouth. 11:48 Reassessment: Patient transported to CT via stretcher. aj1 12:22 Reassessment: Patient returned to room from CT. aj1 12:30 Reassessment: Patient appears in no apparent distress at this time. No changes from aj1 previously documented assessment. Patient and/or family updated on plan of care and expected duration. Pain level reassessed. Patient is alert, oriented x 3, equal unlabored respirations, skin warm/dry/pink. 13:30 Reassessment: Patient appears in no apparent distress at this time. No changes from aj1 previously documented assessment. Patient and/or family updated on plan of care and expected duration. Pain level reassessed. Patient is alert, oriented x 3, equal unlabored respirations, skin warm/dry/pink. 14:39 Reassessment: Patient appears in no apparent distress at this time. Patient and/or ss family updated on plan of care and expected duration. Pain level reassessed. Vital Signs: 11:17 BP 128 / 62; Pulse 57; Resp 16; Temp 98; Pulse Ox 93% on R/A; Weight 79.38 kg; Height 5 sv ft. 2 in. (157.48 cm); 12:49 BP 134 / 48; Pulse 57; Resp 20; Temp 98.2(O); Pulse Ox 92% on 2 lpm NC; mh5 13:48 BP 145 / 51; Pulse 55; Resp 18; Temp 98.4(O); Pulse Ox 93% on 2 lpm NC; mh5 13:49 BP 145 / 51; Pulse 62; Resp 18; Pulse Ox 95% on 2 lpm NC; aj1 11:17 Body Mass Index 32.01 (79.38 kg, 157.48 cm) ED Course: 11:10 Patient arrived in ED. mr 11:10 Raymon Johnson MD is Private Physician. mr 11:19 Arm band placed on. sv 11:20 Triage completed. sv 11:25 Lorena Shetty, RN is Primary Nurse. aj1 11:25 Alfie Sigala MD is Attending Physician. wa 11:45 Patient has correct armband on for positive identification. Bed in low position. Call aj1 light in reach. Side rails up X 1. 11:45 No provider procedures requiring assistance completed. aj1 11:56 CT completed. Patient tolerated procedure well. Patient moved to radiology via sj stretcher. 11:57 CT Head C Spine In Process Unspecified. EDMS 12:07 X-ray completed. Patient tolerated procedure well. Patient moved to radiology via sw stretcher. Patient moved back from radiology. 12:13 XRAY Pelvis In Process Unspecified. EDMS 12:13 XRAY Chest (1 view) In Process Unspecified. EDMS 12:37 Inserted saline lock: 22 gauge in left forearm, using aseptic technique. Blood aj1 collected. 13:47 Urine collected: clean catch specimen, rody colored. [facility] 13:47 Urine Microscopic Only Sent. [facility] 14:28 Raymon Johnson MD is Referral Physician. la 14:39 IV discontinued, intact, bleeding controlled, No redness/swelling at site. Pressure ss dressing applied. Administered Medications: No medications were administered Outcome: 14:29 Discharge ordered by . wa 14:39 Discharged to home via wheelchair, with family. ss 14:39 Condition: good 14:39 Discharge instructions given to patient, family, Instructed on discharge instructions, follow up and referral plans. Demonstrated understanding of instructions, follow-up care, medications. 14:40 Patient left the ED. ss Signatures: Dispatcher [employer] EDLA Lorena Shetty, TAMY RN aj1 Brianna Rogers RN RN Jane Land mr John, Alma Hand RN RN Tejal Butler [facility] Alfie Sigala MD MD la Corrections: (The following items were deleted from the chart) 11:19 11:15 Presenting complaint: Child states: Daughter states pt had an unwitnessed fall on Sunday and was found on the ground, denies head injury but noted that she had bruising on her mouth area. 11:20 11:17 BP 128 / 62; Pulse 57bpm; Resp 16bpm; Temp 98F; 79.38 kg; Height 5 ft. 2 in.; BMI: 32.0; sv
--- NOTE | 2019-03-10 14:29 | EDPHYS ---
Physician Documentation [facility] [place], [place] Name: Martha Tobar Age: 83 yrs Sex: Female : 1935 Arrival Date: 03/10/2019 Time: 11:10 Bed 18 Private MD: Raymon Johnson ED Physician Aflie Sigala HPI: 03/10 12:19 This 83 yrs old Female presents to ER via Wheelchair with complaints of Fall wa Injury. 12:19 Details of fall: The patient fell from an upright position. Onset: The symptoms/episode wa began/occurred 2 day(s) ago. Associated injuries: The patient sustained L shoulder pain. R upper lip bruise. Severity of symptoms: At their worst the symptoms were moderate, in the emergency department the symptoms are unchanged. The patient has not experienced similar symptoms in the past. The patient has been recently seen by a physician: with different complaint(s). Historical: - Allergies: 11:17 No Known Allergies; sv - PMHx: 11:17 Depression; Diabetes - IDDM; GERD; Hypertension; sv - PSHx: 11:17 None; sv - Immunization history:: Adult Immunizations up to date. - Family history:: not pertinent. - Social history:: Smoking status: Patient/guardian denies using tobacco. - Hospitalizations: : No recent hospitalization is reported. - History obtained from: daughter. ROS: 12:20 Constitutional: Negative for fever, chills, and weight loss, Eyes: Negative for injury, wa pain, redness, and discharge, ENT: Negative for injury, pain, and discharge, Neck: Negative for injury, pain, and swelling, Cardiovascular: Negative for chest pain, palpitations, and edema, Respiratory: Negative for shortness of breath, cough, wheezing, and pleuritic chest pain, Abdomen/GI: Negative for abdominal pain, nausea, vomiting, diarrhea, and constipation, Back: Negative for injury and pain, : Negative for injury, bleeding, discharge, and swelling, Neuro: Negative for headache, weakness, numbness, tingling, and seizure, Psych: Negative for depression, anxiety, suicide ideation, homicidal ideation, and hallucinations. 12:20 MS/extremity: Positive for pain, tenderness, of the anterior aspect of left shoulder. 12:20 Skin: Positive for discoloration, ecchymosis, of the R side upper lip. Exam: 12:21 Constitutional: This is a well developed, well nourished patient who is awake, alert, wa and in no acute distress. Eyes: Pupils equal round and reactive to light, extra-ocular motions intact. Lids and lashes normal. Conjunctiva and sclera are non-icteric and not injected. Cornea within normal limits. Periorbital areas with no swelling, redness, or edema. ENT: Nares patent. No nasal discharge, no septal abnormalities noted. Tympanic membranes are normal and external auditory canals are clear. Oropharynx with no redness, swelling, or masses, exudates, or evidence of obstruction, uvula midline. Mucous membranes moist. Neck: Trachea midline, no thyromegaly or masses palpated, and no cervical lymphadenopathy. Supple, full range of motion without nuchal rigidity, or vertebral point tenderness. No Meningismus. Chest/axilla: Normal chest wall appearance and motion. Nontender with no deformity. No lesions are appreciated. Cardiovascular: Regular rate and rhythm with a normal S1 and S2. No gallops, murmurs, or rubs. Normal PMI, no JVD. No pulse deficits. Respiratory: Lungs have equal breath sounds bilaterally, clear to auscultation and percussion. No rales, rhonchi or wheezes noted. No increased work of breathing, no retractions or nasal flaring. Abdomen/GI: Soft, non-tender, with normal bowel sounds. No distension or tympany. No guarding or rebound. No evidence of tenderness throughout. Back: No spinal tenderness. No costovertebral tenderness. Full range of motion. MS/ Extremity: Pulses equal, no cyanosis. Neurovascular intact. Full, normal range of motion. Neuro: Awake and alert, GCS 15, oriented to person, place, time, and situation. Cranial nerves II-XII grossly intact. Motor strength 5/5 in all extremities. Sensory grossly intact. Cerebellar exam normal. Normal gait. 12:21 Head/face: Noted is ecchymosis, of the right upper lip. Vital Signs: 11:17 BP 128 / 62; Pulse 57; Resp 16; Temp 98; Pulse Ox 93% on R/A; Weight 79.38 kg; Height 5 sv ft. 2 in. (157.48 cm); 12:49 BP 134 / 48; Pulse 57; Resp 20; Temp 98.2(O); Pulse Ox 92% on 2 lpm NC; mh5 13:48 BP 145 / 51; Pulse 55; Resp 18; Temp 98.4(O); Pulse Ox 93% on 2 lpm NC; mh5 13:49 BP 145 / 51; Pulse 62; Resp 18; Pulse Ox 95% on 2 lpm NC; aj1 11:17 Body Mass Index 32.01 (79.38 kg, 157.48 cm) sv [facility]: 11:25 Patient medically screened. me 14:26 Differential diagnosis: closed head injury, contusion, fracture. Data reviewed: vital wa signs, nurses notes. Test interpretation: by ED physician or midlevel provider: head and c-spine CT: no acute process. labs noted within nml limits. . Response to treatment: the patient's symptoms have markedly improved after treatment. 03/10 11:42 Order name: Basic Metabolic Panel; Complete Time: 14:25 me 03/10 11:42 Order name: CBC with Diff; Complete Time: 13: me 03/10 11:42 Order name: CT Head C Spine; Complete Time: 13: me 03/10 11:42 Order name: Urine Microscopic Only; Complete Time: 14:25 me 03/10 11:42 Order name: LFT's; Complete Time: 14: me 03/10 14:01 Order name: Urine Dipstick--Ancillary (enter results) 03/10 11:42 Order name: XRAY Pelvis; Complete Time: 13:05 me 03/10 11:42 Order name: XRAY Chest (1 view); Complete Time: 13:05 me 03/10 11:42 Order name: Labs collected and sent; Complete Time: 13:03 me 03/10 11:42 Order name: Urine Dipstick-Ancillary (obtain specimen); Complete Time: 13:47 me Administered Medications: No medications were administered Disposition: 03/10/19 14:29 Discharged to Home. Impression: Acute Mechanical Fall from Standing, FACIAL BRUISE. - Condition is Stable. - Discharge Instructions: Fall Prevention in the Home, [id number]. - Medication Reconciliation Form, Thank You Letter, Antibiotic Education, Prescription Opioid Use form. - Follow up: Raymon Johnson MD; When: 2 - 3 days; Reason: Re-evaluation by your physician. - Problem is new. - Notes: follow up with your doctor within 1 week if in pain or do not improve Signatures: Dispatcher [employer] EDBrianna Cruz, TAMY RN Alma Greer RN RN ss Appiah, William, MD MD wa Corrections: (The following items were deleted from the chart) 14:29 14:29 03/10/2019 14:29 Discharged to Home. Impression: Acute Mechanical Fall from me Standing. Condition is Stable. Forms are Medication Reconciliation Form, Thank You Letter, Antibiotic Education, Prescription Opioid Use. Follow up: Raymon Hernandezosun; When: 2 - 3 days; Reason: Re-evaluation by your physician. Problem is new. me 14:40 14:29 03/10/2019 14:29 Discharged to Home. Impression: Acute Mechanical Fall from Standing; FACIAL BRUISE. Condition is Stable. Forms are Medication Reconciliation Form, Thank You Letter, Antibiotic Education, Prescription Opioid Use. Follow up: Raymon Okosun; When: 2 - 3 days; Reason: Re-evaluation by your physician. Problem is new. me
[2019-03-10 16:31] LABS: Urine Blood NEGATIVE (NEG); Urine Glucose NEGATIVE (NEG); Urine Protein 1+ (NEG); Urine Specific Gravity 1.025 (1.005-1.030); Urine pH 5.5 (5.0-7.0)
== END 2019-03-10 14:40 | disposition home or self-care (01) ==
LOC: ER 11:07
DX: S00.531A Contusion of lip, initial encounter (principal); W18.30XA Fall on same level, unspecified, initial encounter; M25.512 Pain in left shoulder; F32.9 Major depressive disorder, single episode, unspecified; E11.9 Type 2 diabetes mellitus without complications; I10 Essential (primary) hypertension; K21.9 Gastro-esophageal reflux disease without esophagitis; Z79.4 Long term (current) use of insulin
CPT/HCPCS: 36415; 70450; 71045; 72125; 72170; 80048; 80076; 81003; 81015; 85025; 99284

== ENCOUNTER 2019-05-12 20:43 | Emergency (ER) | payer OTHER ==
[2019-05-12] MEDS ORDERED: ONDANSETRON 4 MG/2 ML VIAL ONE (21:35)
[2019-05-12 21:53] LABS: Absolute Lymphocytes (CBC) 2.3 K/uL (0.7-4.9); Basophils % 0.9 % (0-1.3); Lymphocytes % 25.1 % (15.3-44.8); MPV 8.6 fL (7.6-11.3); Monocytes % 7.1 % (3.3-12.3); RBC Red Blood Cell Count 4.38 M/uL (3.86-4.86)
[2019-05-12 22:09] LABS: Albumin 3.3 g/dL (3.4-5.0); Bilirubin Direct 0.2 mg/dL (0-0.2); Bilirubin Total 0.6 mg/dL (0.2-1.0); Potassium 4.1 mmol/L (3.5-5.1); Protein, Total 8.1 g/dL (6.4-8.2)
[2019-05-12 22:15] LABS: Urine Bacteria >50 /HPF (<20); Urine RBC <5 /HPF (NONE SEEN)
[2019-05-12 22:16] LABS: Urine Culture Reflex Order REFLEXED
[2019-05-12 22:24] LABS: Urine Blood NEGATIVE (NEG); Urine Glucose NEGATIVE (NEG); Urine Protein TRACE (NEG); Urine Specific Gravity 1.015 (1.005-1.030); Urine pH 7.5 (5.0-7.0)
[2019-05-12] MEDS ORDERED: CEFTRIAXONE/SWI 1gm 1 GM/10 ML SYR ONE (22:52)
--- NOTE | 2019-05-13 00:33 | ER ---
Nurse's Notes [facility] Name: Martha Tobar Age: 84 yrs Sex: Female : 1935 Arrival Date: 05/12/2019 Time: 20:48 Bed 20 Private MD: Raymon Johnson Diagnosis: Urinary tract infection, site not specified;Nausea and vomiting Presentation: 05/12 21:10 Presenting complaint: Child states: Nausea, vomiting that began today; states some lp1 diarrhea; Patient began antibiotics today for UTI by PCP; Patient touching abdomen, states "I feel like there is a ball in there"; Denies constipation. Transition of care: patient was not received from another setting of care. Onset of symptoms was May 12, 2019. Risk Assessment: Do you want to hurt yourself or someone else? Patient reports no desire to harm self or others. Initial Sepsis Screen: Does the patient meet any 2 criteria? No. Patient's initial sepsis screen is negative. Does the patient have a suspected source of infection? No. Patient's initial sepsis screen is negative. Care prior to arrival: None. 21:10 Method Of Arrival: Wheelchair lp1 21:10 Acuity: RIGOBERTO 3 lp1 Triage Assessment: 21:10 General: Appears in no apparent distress. comfortable. GI: Reports diarrhea, vomiting, cc3 since today. Historical: - Allergies: 21:15 No Known Allergies; lp1 - Home Meds: 21:15 losartan 100 mg oral tab 1 tab once daily [Active]; galantamine oral oral [Active]; lp1 letrozole 2.5 mg oral tab once daily [Active]; duloxetine Oral once daily [Active]; Tramadol Oral [Active]; mirtazapine 15 mg Oral TbDL 1 tab once daily [Active]; Carbidopa-Levodopa Oral [Active]; amlodipine oral [Active]; metformin 1,000 mg oral tab 2 times per day [Active]; Metoprolol Tartrate Oral [Active]; omeprazole 20 mg oral TbEC daily [Active]; lovastatin 40 mg oral tab once daily [Active]; Levemir 30 units subcutaneous daily [Active]; - PMHx: 21:15 Depression; Diabetes - IDDM; GERD; Hypertension; breast cancer; lp1 - PSHx: 21:15 Cholecystectomy; Hysterectomy; lp1 - Immunization history:: Adult Immunizations up to date. - Social history:: Smoking status: Patient/guardian denies using tobacco. - Ebola Screening: : No symptoms or risks identified at this time. Screenin:03 Abuse screen: Denies threats or abuse. Denies injuries from another. Nutritional cc3 screening: No deficits noted. Tuberculosis screening: No symptoms or risk factors identified. Fall Risk Ambulatory Aid- None/Bed Rest/Nurse Assist (0 pts). Gait- Normal/Bed Rest/Wheelchair (0 pts) Mental Status- Overestimates/Forgets Limitations (15 pts.). Assessment: 21:03 General: Appears in no apparent distress. comfortable, Behavior is calm, cooperative, cc3 appropriate for age. Pain: Denies pain. Neuro: Level of Consciousness is awake, obeys commands, Oriented to person, place, situation, Appropriate for age. Cardiovascular: Denies chest pain, Capillary refill < 3 seconds Patient's skin is warm and dry. Respiratory: Airway is patent Respiratory effort is even, unlabored, Respiratory pattern is regular, symmetrical. GI: Abdomen is round non-distended. : No signs and/or symptoms were reported regarding the genitourinary system. EENT: No signs and/or symptoms were reported regarding the EENT system. Derm: Skin is intact, is fragile, Skin is pink, warm \\T\\ dry. normal. Musculoskeletal: Circulation, motion, and sensation intact. Range of motion: intact in all extremities. 22:13 Reassessment: Patient appears in no apparent distress at this time. Patient and/or cc3 family updated on plan of care and expected duration. Pain level reassessed. Patient is alert, oriented x 3, equal unlabored respirations, skin warm/dry/pink. 22:20 Reassessment: Patient taken to CT scan department by the word processor technician by fredy. cc3 22:47 Reassessment: Patient appears in no apparent distress at this time. Patient and/or cc3 family updated on plan of care and expected duration. Pain level reassessed. Patient is alert, oriented x 3, equal unlabored respirations, skin warm/dry/pink. Patient came back from CT scan department, awaiting result. 23:13 Reassessment: Patient appears in no apparent distress at this time. Patient and/or cc3 family updated on plan of care and expected duration. Pain level reassessed. Patient is alert, oriented x 3, equal unlabored respirations, skin warm/dry/pink. 05/13 00:50 Reassessment: Patient appears in no apparent distress at this time. Patient and/or cc3 family updated on plan of care and expected duration. Pain level reassessed. Patient is alert, oriented x 3, equal unlabored respirations, skin warm/dry/pink. KAREY Wisdom discharged the patient home with prescription given. IV cannula removed and patient left ER vitally stable by wheelchair escorted by me and the patient's daughter. No valuables left in the patient's room. Patient denies pain at this time. Patient states feeling better. Patient states symptoms have improved. Vital Signs: 05/12 21:16 BP 145 / 87; Pulse 66; Resp 24; Temp 98.3(O); Pulse Ox 96% on R/A; Weight 65.77 kg (R); lp1 Pain 0/10; 22:08 BP 154 / 56; Pulse 65; Resp 22 S; Pulse Ox 95% on R/A; cc3 23:13 BP 125 / 47; Pulse 73; Resp 19 S; Pulse Ox 95% on R/A; cc3 05/13 00:45 BP 129 / 63; Pulse 75; Resp 20 S; Pulse Ox 95% on R/A; cc3 ED Course: 05/12 20:48 Patient arrived in ED. es 20:48 Raymon Johnson MD is Private Physician. es 21:03 Zenaida Riggins is Primary Nurse. cc3 21:04 [facility]. pm1 21:04 Toño Murillo MD is Attending Physician. pm1 21:11 Triage completed. lp1 21:16 Arm band placed on. lp1 21:16 Patient has correct armband on for positive identification. Placed in gown. Bed in low lp1 position. Side rails up X2. engine monitor on. Pulse ox on. NIBP on. 21:20 Radiology exam delayed due to lab results not completed at this time. (BUN/Creatinine). eh 21:40 Inserted saline lock: 22 gauge in left wrist, using aseptic technique. Blood collected. cc3 22:58 CT Abd/Pelvis - IV Contrast Only In Process Unspecified. EDMS 05/13 00:31 Raymon Johnson MD is Referral Physician. pm1 00:50 No provider procedures requiring assistance completed. IV discontinued, intact, cc3 bleeding controlled, No redness/swelling at site. Pressure dressing applied. Administered Medications: 05/12 21:40 Drug: Zofran 4 mg Route: IVP; Site: left wrist; cc3 22:13 Follow up: Response: No adverse reaction; Nausea is decreased cc3 22:50 Drug: Rocephin 1 grams Route: IV; Rate: calculated rate; Site: left wrist; cc3 23:00 Follow up: Response: No adverse reaction; IV Status: Completed infusion; IV Intake: [id number] Intake: 23:00 IV: 10ml; Total: 10ml. cc3 Outcome: 05/13 00:32 Discharge ordered by . pm1 00:50 Discharged to home via wheelchair, with family. cc3 00:50 Condition: stable 00:50 Discharge instructions given to patient, family, Instructed on discharge instructions, follow up and referral plans. medication usage, Demonstrated understanding of instructions, follow-up care, medications, Prescriptions given X 1. 00:52 Patient left the ED. cc3 Signatures: Dispatcher [employer] Joanne Aguilar Ervin eh Pena, Laura, RN RN lp1 Kaveh Wisdom NP [employer] pm1 Zenaida Riggins cc3
--- NOTE | 2019-05-13 00:33 | EDPHYS ---
Physician Documentation [facility]ly [facility] Name: Martha Tobar Age: 84 yrs Sex: Female : 1935 Arrival Date: 05/12/2019 Time: 20:48 Bed 20 Private MD: Raymon Johnson ED Physician Toño Murillo HPI: 05/12 22:05 This 84 yrs old Female presents to ER via Wheelchair with complaints of pm1 Vomiting, Abdominal Pain. 22:05 The patient presents to the emergency department with nausea, vomiting. Onset: The pm1 symptoms/episode began/occurred today. Possible causes: urinary tract infection. The symptoms are aggravated by nothing. The symptoms are alleviated by nothing. Associated signs and symptoms: Pertinent positives: nausea, vomiting, Pertinent negatives: abdominal pain, dysuria, fever. Severity of symptoms: in the emergency department the symptoms are worse. patient prescribed Bactrim today for urinary tract infection by PCP. Patient denies abdominal pain but reports the sensation of a ball in her stomach, possibly nausea sensation. Historical: - Allergies: 21:15 No Known Allergies; lp1 - Home Meds: 21:15 losartan 100 mg oral tab 1 tab once daily [Active]; galantamine oral oral [Active]; lp1 letrozole 2.5 mg oral tab once daily [Active]; duloxetine Oral once daily [Active]; Tramadol Oral [Active]; mirtazapine 15 mg Oral TbDL 1 tab once daily [Active]; Carbidopa-Levodopa Oral [Active]; amlodipine oral [Active]; metformin 1,000 mg oral tab 2 times per day [Active]; Metoprolol Tartrate Oral [Active]; omeprazole 20 mg oral TbEC daily [Active]; lovastatin 40 mg oral tab once daily [Active]; Levemir 30 units subcutaneous daily [Active]; - PMHx: 21:15 Depression; Diabetes - IDDM; GERD; Hypertension; breast cancer; lp1 - PSHx: 21:15 Cholecystectomy; Hysterectomy; lp1 - Immunization history:: Adult Immunizations up to date. - Social history:: Smoking status: Patient/guardian denies using tobacco. - Ebola Screening: : No symptoms or risks identified at this time. ROS: 22:05 Constitutional: Negative for fever, chills, and weight loss, Eyes: Negative for injury, pm1 pain, redness, and discharge, ENT: Negative for injury, pain, and discharge, Neck: Negative for injury, pain, and swelling, Cardiovascular: Negative for chest pain, palpitations, and edema, Respiratory: Negative for shortness of breath, cough, wheezing, and pleuritic chest pain. 22:05 Back: Negative for injury and pain, : Negative for injury, bleeding, discharge, and swelling, MS/Extremity: Negative for injury and deformity, Skin: Negative for injury, rash, and discoloration, Neuro: Negative for headache, weakness, numbness, tingling, and seizure. 22:05 Abdomen/GI: Positive for nausea and vomiting, Negative for abdominal pain, diarrhea, constipation. Exam: 22:05 Constitutional: This is a well developed, well nourished patient who is awake, alert, pm1 and in no acute distress. Head/Face: Normocephalic, atraumatic. Eyes: Pupils equal round and reactive to light, extra-ocular motions intact. Lids and lashes normal. Conjunctiva and sclera are non-icteric and not injected. Cornea within normal limits. Periorbital areas with no swelling, redness, or edema. ENT: Nares patent. No nasal discharge, no septal abnormalities noted. Tympanic membranes are normal and external auditory canals are clear. Oropharynx with no redness, swelling, or masses, exudates, or evidence of obstruction, uvula midline. Mucous membranes moist. Neck: Trachea midline, no thyromegaly or masses palpated, and no cervical lymphadenopathy. Supple, full range of motion without nuchal rigidity, or vertebral point tenderness. No Meningismus. Chest/axilla: Normal chest wall appearance and motion. Nontender with no deformity. No lesions are appreciated. Cardiovascular: Regular rate and rhythm with a normal S1 and S2. No gallops, murmurs, or rubs. Normal PMI, no JVD. No pulse deficits. Respiratory: Lungs have equal breath sounds bilaterally, clear to auscultation and percussion. No rales, rhonchi or wheezes noted. No increased work of breathing, no retractions or nasal flaring. Abdomen/GI: Soft, non-tender, with normal bowel sounds. No distension or tympany. No guarding or rebound. No evidence of tenderness throughout. Back: No spinal tenderness. No costovertebral tenderness. Full range of motion. Skin: Warm, dry with normal turgor. Normal color with no rashes, no lesions, and no evidence of cellulitis. MS/ Extremity: Pulses equal, no cyanosis. Neurovascular intact. Full, normal range of motion. 22:05 Neuro: Orientation: is normal, Motor: is normal, moves all fours, Sensation: is normal, no obvious gross deficits. Vital Signs: 21:16 BP 145 / 87; Pulse 66; Resp 24; Temp 98.3(O); Pulse Ox 96% on R/A; Weight 65.77 kg (R); lp1 Pain 0/10; 22:08 BP 154 / 56; Pulse 65; Resp 22 S; Pulse Ox 95% on R/A; cc3 23:13 BP 125 / 47; Pulse 73; Resp 19 S; Pulse Ox 95% on R/A; cc3 05/13 00:45 BP 129 / 63; Pulse 75; Resp 20 S; Pulse Ox 95% on R/A; cc3 MDM: 05/12 21:04 Patient medically screened. pm1 05/13 00:31 Data reviewed: vital signs. Data interpreted: Pulse oximetry: on room air is 95 %. pm1 Interpretation: normal. Counseling: I had a detailed discussion with the patient and/or guardian regarding: the historical points, exam findings, and any diagnostic results supporting the discharge/admit diagnosis, lab results, radiology results, the need for outpatient follow up, to return to the emergency department if symptoms worsen or persist or if there are any questions or concerns that arise at home. 05/12 21:11 Order name: Basic Metabolic Panel; Complete Time: 22:24 pm1 05/12 21:11 Order name: CBC with Diff; Complete Time: 22:01 pm1 05/12 21:11 Order name: Creatinine for Radiology; Complete Time: 22:24 pm1 05/12 21:11 Order name: Hepatic Function; Complete Time: 22:24 pm1 05/12 21:11 Order name: Lipase; Complete Time: 22:24 pm1 05/12 21:11 Order name: Urine Microscopic Only; Complete Time: 22:24 pm1 05/12 21:11 Order name: IV Saline Lock; Complete Time: 21:46 pm1 05/12 21:11 Order name: Labs collected and sent; Complete Time: 21:46 pm1 05/12 21:11 Order name: Urine Dipstick-Ancillary (obtain specimen); Complete Time: 22:05 pm1 05/12 21:11 Order name: CT Abd/Pelvis - IV Contrast Only pm1 05/12 22:08 Order name: Urine Dipstick--Ancillary (enter results); Complete Time: 22:25 ar5 05/12 22:16 Order name: Urine Culture EDIN 05/12 21:11 Order name: Straight Cath - Urine; Complete Time: 22:05 pm1 05/13 00:32 Order name: PO challenge; Complete Time: 00:52 pm1 Administered Medications: 05/12 21:40 Drug: Zofran 4 mg Route: IVP; Site: left wrist; cc3 22:13 Follow up: Response: No adverse reaction; Nausea is decreased cc3 22:50 Drug: Rocephin 1 grams Route: IV; Rate: calculated rate; Site: left wrist; cc3 23:00 Follow up: Response: No adverse reaction; IV Status: Completed infusion; IV Intake: 41binp1 Disposition: 05/13 22:09 Co-signature as Attending Physician, Toño Murillo MD Available for consultation at ps1 all times. . Disposition: 05/13/19 00:32 Discharged to Home. Impression: Urinary tract infection, site not specified, Nausea and vomiting. - Condition is Stable. - Discharge Instructions: Nausea and Vomiting, Adult, Urinary Tract Infection, Adult. - Prescriptions for Zofran 4 mg Oral Tablet - take 1 tablet by ORAL route every 12 hours As needed; 20 tablet. Bactrim DS 800- 160 mg Oral Tablet - take 1 tablet by ORAL route every 12 hours for 10 days; 20 tablet. - Medication Reconciliation Form, Thank You Letter, Antibiotic Education, Prescription Opioid Use form. - Follow up: Emergency Department; When: As needed; Reason: Worsening of condition. Follow up: Raymon Johnson MD; When: 2 - 3 days; Reason: Recheck today's complaints, Continuance of care, Re-evaluation by your physician. - Problem is new. - Symptoms have improved. Signatures: Dispatcher [employer] EDMS Sarah Pulido RN RN lp1 Kaveh Wisdom, [employer] ADMINISTRATOR [employer] ADMINISTRATOR pm1 Toño Murillo MD MD ps1 Cordel, Zenaida cc3 Corrections: (The following items were deleted from the chart) 00:52 00:32 05/13/2019 00:32 Discharged to Home. Impression: Urinary tract infection, site cc3 not specified; Nausea and vomiting. Condition is Stable. Forms are Medication Reconciliation Form, Thank You Letter, Antibiotic Education, Prescription Opioid Use. Follow up: Emergency Department; When: As needed; Reason: Worsening of condition. Follow up: Raymon Johnson; When: 2 - 3 days; Reason: Recheck today's complaints, Continuance of care, Re-evaluation by your physician. Problem is new. Symptoms have improved. pm1
--- NOTE | 2019-05-13 10:53 | RAD REPORT ---
EXAM DESCRIPTION: CT - Abdomen Pelvis W Contrast - 05/13/2019 1:31 am CLINICAL HISTORY: 84 years Female recent diagnosis of UTI;Nausea / vomiting;Abd pain COMPARISON: None TECHNIQUE: Images were obtained in axial, sagittal, and coronal planes. Intravenous contrast was adm inistered. Arterial and venous phase imaging was submitted. This exam was performed according to our departmental dose-optimization program which includes use of Automated Exposure Control, adjustment of the mA and/or kV according to patient size and/or use of i terative reconstruction technique. FINDINGS: No abnormality involving the liver, spleen, pancreas, or adrenal glands bilaterally. Prior cholecystectomy. No obstructing renal calcifications bilaterally. No hydronephrosis bilaterally. Bilateral renal cysts . No perinephric stranding bilaterally. Unremarkable bladder. Appendix not well identified however no secondary signs for appendicitis. No bowel obstruction, perfo ration, or inflammation. Calcification abdominal aorta with no dilatation seen. No adenopathy or abnormal fluid collections se en. Increased attenuation subcutaneous fat midline abdomen possibly inflammatory change. Chronic changes lower lungs bilaterally. Pleural thickening anterolateral right lower hemithorax. No acute osseous abnormality. IMPRESSION: No acute intra-abdominal abnormality. Electronically signed by: Yaritza Ashraf MD 05/12/2019 11:10 PM CDT Due to temporary technical issues with the PACS/Fluency reporting system, reports are being signed by the in house radiologist as a courtesy to ensure prompt reporting. The interpreting radiologist is f ully responsible for the content of the report.
== END 2019-05-13 00:52 | disposition home or self-care (01) ==
LOC: ER 20:43
DX: N39.0 Urinary tract infection, site not specified (principal); I10 Essential (primary) hypertension; E11.9 Type 2 diabetes mellitus without complications; F32.9 Major depressive disorder, single episode, unspecified; Z85.3 Personal history of malignant neoplasm of breast
CPT/HCPCS: 87088; 85025; 87086; 80048; 36415; 80076; 83690; 74177; 96375; 96374; 99284; Q9967; J0696; J2405; 81003; 81015

== ENCOUNTER 2020-03-22 11:50 | Emergency (ER) | payer OTHER ==
--- OUTSIDE RECORDS SUMMARY | 2020-03-22 11:52 | XMS REPORT ---
:1935 Author Organization [employer] Care Team Providers Name Role Phone [place] Provider Role Unavailable Allergies, Adverse Reactions, Alerts Substance Reaction Event Type N.K.D.A. 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 Medications Medication Code Code Instructions Start End Status Dosage System Date Date Duloxetine HCl [facility] 18945333930 30 MG Oral Active TA KE 1 CAPSULE BY MOUTH EVERY DAY Galantamine [facility] 47463090295 8 MG Oral Active TAKE 1 Hydrobromide TABLET BY MOUTH TWICE A DAY Meclizine HCl [facility] 81810500496 25 MG Oral Active ASAF E 1 TABLET BY MOUTH 3 TIMES A DAY NEEDED Mirtazapine [facility] 84190305146 15 MG Oral Active TAKE 1 TABLET EVERY DAY AT BEDTIME NEEDED Albuterol [facility] 58906542903 108 (90 Base) Active TAKE 2 Sulfate HFA MCG/ACT PUFFS BY Inhalation MOUTH EVERY 4 HOURS NEEDED Metformin HCl [facility] 67418015443 1000 MG Oral Active T [place] 1 TABLET BY MOUTH TWICE A DAY WITH MEALS Carbidopa-Levodo [facility] 41288464141 25-100 MG Oral Acti ve TAKE 1 pa TABLET BY MOUTH TWICE A DAY Losartan [facility] [address]-79 Active not Potassium defined Letrozole [facility] 53549970274 2.5 MG Oral Active TAKE 1 TABLET BY MOUTH EVERY DAY Ciprofloxacin [facility] [address]-77 Active not HCl defined Pantoprazole [facility] 63153456652 40 MG Oral Active TAKE 1 Sodium TABLET BY MOUTH EVERY DAY Amlodipine [facility] 92196178467 10 MG Oral Active TAKE 1 Besylate TABLET BY MOUTH EVERY DAY Results No Known Results Summary Purpose [employer] Submission
--- OUTSIDE RECORDS SUMMARY | 2020-03-22 11:52 | XMS REPORT ---
:1935 Author Organization [facility] t Address [address] [place] [address] [address] [place] [address] Care Team Providers Name Role Phone Unavailable Unavailable Unavailable Problems Condition Condition Condition Status Onset Resolution Last Treating Co mments Source Name Details Category Date Date Treatment Clinician Date Primary Primary Problem Active [facility] osteoarthr osteoarthr Rohini kes - itis, left itis, left Me moria shoulder shoulder l [facility] Pain, Pain, Diagnosis Active [facility], shoulder, Derik melisa left left l [facility] Dysfunctio Dysfunctio Diagnosis Active [facility] n of left n of left Luke [facility] - rotator rotator [facility] cuff cuff l [facility] Allergies, Adverse Reactions, Alerts This patient has no known allergies or adverse reactions. Medications Ordered Filled Start Stop Current Ordering Indication Dosage Frequency Signature Comments Components Source Medication Medication Date Date Medication? Clinician (SIG) Name Name Duloxetine Duloxetine Yes Jose TAKE [address] [facility] HCl HCl [place] CAPSULE BY [facility] - MOUTH [facility] EVERY DAY l [facility] ent Clinics Galantamine Galantamine Yes Jose TAKE [address] [facility] Hydrobromid Hydrobromid [place] TABLET BY [facility] - e e MOUTH [facility] TWICE A l DAY [facility] Meclizine Meclizine Yes Jose TAKE [address] [facility] HCl HCl [place] TABLET BY [facility] - MOUTH 3 [facility]oria TIMES A l DAY Outpati NEEDED ent Clinics Mirtazapine Mirtazapine Yes Jose TAKE [address] [facility] [place] TABLET [facility] - EVERY DAY [facility] AT BEDTIME l NEEDED Outpati ent Clinics Albuterol Albuterol Yes Jose TAKE [address] [facility] Sulfate HFA Sulfate HFA [place] PUFFS BY [facility] - MOUTH [facility] EVERY 4 l HOURS Outpati NEEDED ent Clinics Metformin Metformin Yes Jose TAKE [address] [facility] HCl HCl [place] TABLET BY [facility] - MOUTH [facility] TWICE A l DAY WITH Outpati MEALS ent Clinics Carbidopa-L Carbidopa-L Yes Jose TAKE [address] [facility] evodopa evodopa [place] TABLET BY [facility] - MOUTH [facility] TWICE A l DAY [facility] Losartan Losartan Yes Jose not [facility] Potassium Potassium [facility] Letrozole Letrozole Yes Jose TAKE [address] [facility] [place] TABLET BY [facility] - MOUTH [facility] EVERY DAY [facility] Ciprofloxac Ciprofloxac Yes Jose not [facility] in HCl in HCl [place] defined [facility] Pantoprazol Pantoprazol Yes Jose TAKE [address] [facility] e Sodium e Sodium [place] TABLET BY Rohini kes - MOUTH [facility] EVERY DAY [facility] Amlodipine Amlodipine Yes Jose TAKE [address] [facility] Besylate Besylate [place] TABLET BY Rohini kes - MOUTH [facility] EVERY DAY [facility] Procedures This patient has no known procedures. Encounters Start End Encounter Admission Attending Care Care Encounter Source Date/Time Date/Time Type Type Clinicians Facility Department ID 2020-01-12 2020-01-12 Outpatient Ike Mai [id number] [facility] 09:30:00 09:30:00 [facility] Results This patient has no known results.
--- NOTE | 2020-03-22 12:37 | RAD REPORT ---
EXAM DESCRIPTION: CT - Head Brain Wo Cont - 03/22/2020 12:26 pm CLINICAL HISTORY: fall, dizzy, head injury Fall, trauma, head injury COMPARISON: Head Brain Wo Cont dated 03/06/2019; SINUS W O CONTRAST dated 06/07/2011 TECHNIQUE: All CT scans are performed using dose optimization technique as appropriate and may inclu de automated exposure control or mA/KV adjustment according to patient size. FINDINGS: No intracranial hemorrhage, hydrocephalus or extra-axial fluid collection.Prominent brain atrophy is noted. Moderate periventricular and deep white matter chronic microvascular ischemic tobin es.No areas of brain edema or evidence of midline shift. The paranasal sinuses and mastoids are clear. The calvarium is intact. IMPRESSION: No acute intracranial abnormality.
[2020-03-22 12:42] LABS: Absolute Lymphocytes (CBC) 2.2 K/uL (0.7-4.9); Basophils % 0.8 % (0-1.3); Hematocrit 38.5 % (36.0-45.0); Lymphocytes % 23.4 % (15.3-44.8); MPV 9.4 fL (7.6-11.3); RBC Red Blood Cell Count 4.58 M/uL (3.86-4.86)
[2020-03-22] MEDS ORDERED: NA CHLORIDE 0.9% 500 ML ONE (12:55)
--- NOTE | 2020-03-22 13:00 | RAD REPORT ---
EXAM DESCRIPTION: RAD - Chest Single View - 03/22/2020 12:52 pm CLINICAL HISTORY: fall, left sided chest pain Chest pain. COMPARISON: Chest Single View dated 03/10/2019; Chest Single View dated 03/06/2019; Chest Pa And Lat (2 Views) dated 04/13/2018; CHEST PA AND LAT 2 VIEW dated 02/20/2012; Chest Abdomen Pelvis W Cont dated FINDINGS: Portable technique limits examination quality. 2 cm rounded masslike lesion is seen in the right mid lung this may be related to a pulmonary mass or enlarged vessel. Left lung base laterally demonstrates mild hazy appearance suggesting mild atelecta sis or infiltrate. The heart is normal in size. Prominent dextroscoliosis of the thoracic spine is se en. No displaced rib fracture evident.Follow-up CT chest would be recommended further assessment.
--- NOTE | 2020-03-22 13:01 | RAD REPORT ---
EXAM DESCRIPTION: RAD - Humerus Left - 03/22/2020 12:52 pm CLINICAL HISTORY: PAIN COMPARISON: No comparisons FINDINGS: Prominent glenohumeral arthritic changes are present. The bones are osteopenic. No acute f racture evident.
[2020-03-22 13:04] LABS: BUN Blood Urea Nitrogen 30 mg/dL (7-18); Bicarbonate 21 mmol/L (21-32); Glucose Level 155 mg/dL (74-106); Potassium 4.5 mmol/L (3.5-5.1); Sodium Level 135 mmol/L (136-145); Troponin (Emerg Dept Use Only) < 0.02 ng/mL (0.0-0.045)
[2020-03-22 13:41] LABS: Urine Bacteria >50 /HPF (<20); Urine Culture Reflex Order NOT NEEDED; Urine RBC <5 /HPF (NONE SEEN)
[2020-03-22 13:42] LABS: Urine Blood NEGATIVE (NEG); Urine Glucose NEGATIVE (NEG); Urine Protein NEGATIVE (NEG); Urine Specific Gravity 1.025 (1.005-1.030)
[2020-03-22] MEDS ORDERED: CEFTRIAXONE/SWI 1gm 1 GM/10 ML SYR ONE (14:06)
[2020-03-22] MEDS ORDERED: NA CHLORIDE 0.9% 250 ML ONE (14:07)
[2020-03-22 15:02] VITALS: TEMP 97.5
[2020-03-22 15:03] VITALS: O2SAT 96
[2020-03-22 15:06] VITALS: BP 129/67
--- NOTE | 2020-03-23 07:09 | EKG ---
Test Date: 2020-03-22 Test Time: 12:48:26 Casing Operator: NELSON MEASUREMENT RESULTS: Intervals: Rate: 74 GA: 138 QRSD: 116 QT: 398 QTc: 441 [place]: P: 76 GA: 138 QRS: 96 T: 44 INTERPRETIVE STATEMENTS: Sinus rhythm with occasional premature ventricular complexes Rightward axis Incomplete right bundle branch block Borderline ECG Compared to ECG 03/06/2019 12:12:28 Ventricular premature complex(es) now present Right-axis deviation now present Electronically Signed On 03-23-20 07:08:05 CDT by Eliecer Izaguirre
--- NOTE | 2020-03-29 12:15 | EDPHYS ---
Physician Documentation [facility] Name: Martha Tobar Age: 84 yrs Sex: Female : 1935 Arrival Date: 03/22/2020 Time: 11:53 Bed 2 Private MD: ED Physician Jian Núñez HPI: 03/22 12:52 This 84 yrs old Female presents to ER via Wheelchair with complaints of Arm rn Pain, dizzy, fall, possible UTI. 12:52 The patient presents with dizziness, generalized weakness, lightheadedness. rn 12:53 Onset: The symptoms/episode began/occurred 3 day(s) ago. Context: occurred at home. rn Modifying factors: The symptoms are alleviated by lying down. Severity of symptoms: At their worst the symptoms were mild in the emergency department the symptoms are unchanged. The patient has not experienced similar symptoms in the past. Reports 3 days of dizziness and feeling lightheaded, 2 days ago fell onto left side, reports left chest/breast pain as well as left arm pain from fall. Took home test for UTI, and showed possible UTI. Family member reports weakness and dizziness not getting better. Also decreased water/PO intake.. Historical: - Allergies: 12:05 No Known Allergies; hb - PMHx: 12:05 Depression; GERD; Diabetes - IDDM; breast cancer; Hypertension; hb - PSHx: 12:05 Cholecystectomy; Hysterectomy; hb - Immunization history:: Adult Immunizations up to date. - Social history:: Smoking status: Patient denies any tobacco usage or history of. - Family history:: not pertinent. - Hospitalizations: : No recent hospitalization is reported. ROS: 12:53 Constitutional: Negative for fever, chills, and weight loss, Eyes: Negative for injury, rn pain, redness, and discharge, Neck: Negative for injury, pain, and swelling, Cardiovascular: Negative for chest pain, palpitations, and edema, Respiratory: Negative for shortness of breath, cough, wheezing, and pleuritic chest pain, Abdomen/GI: Negative for abdominal pain, nausea, vomiting, diarrhea, and constipation, Back: Negative for injury and pain, MS/Extremity: + left arm pain Skin: Negative for injury, rash, and discoloration, Neuro: Negative for headache, numbness, tingling, and seizure. Exam: 12:53 Constitutional: This is a well developed, well nourished patient who is awake, alert, rn and in no acute distress. Head/Face: Normocephalic Eyes: Periorbital areas with no swelling, redness, or edema. Chest/axilla: + left mid breast tenderness without large hematoma or open wounds. No bony tenderness Cardiovascular: Regular rate and rhythm. No pulse deficits. Respiratory: No increased work of breathing, no retractions or nasal flaring. Abdomen/GI: soft, non-tender MS/ Extremity: Pulses equal, no cyanosis. Neurovascular intact. Full, normal range of motion. Equal circumference. Neuro: Awake and alert, GCS 15, oriented to person, place, and situation. Cranial nerves II-XII grossly intact. Motor strength 5/5 in all extremities. Sensory grossly intact. 14:04 ECG was reviewed by the Attending Physician. rn Vital Signs: 12:00 BP 139 / 92; Pulse 89; Resp 16; Temp 97.8; Pulse Ox 100% on R/A; Weight 76.2 kg; Height hb 5 ft. 1 in. (154.94 cm); Pain 4/10; 12:55 BP 132 / 70; Pulse 79; Resp 18; Temp 97.5(TE); Pulse Ox 94% on R/A; mh5 13:45 BP 129 / 64; Pulse 80; Resp 15 S; Pulse Ox 96% on R/A; ca1 14:45 BP 129 / 67; Pulse 74; Resp 17 S; Pulse Ox 96% on R/A; ca1 12:00 Body Mass Index 31.74 (76.20 kg, 154.94 cm) hb MDM: 12:07 Patient medically screened. rn 13:59 Differential diagnosis: generalized weakness, hypovolemia, idiopathic dizziness, UTI, rn dehydration. Data reviewed: vital signs, nurses notes, lab test result(s), radiologic studies, CT scan, plain films, and as a result, I will discharge patient. Counseling: I had a detailed discussion with the patient and/or guardian regarding: the historical points, exam findings, and any diagnostic results supporting the discharge/admit diagnosis, lab results, radiology results, the need for outpatient follow up, to return to the emergency department if symptoms worsen or persist or if there are any questions or concerns that arise at home. Response to treatment: the patient's symptoms have markedly improved after treatment, the patient's condition has returned to base line, the patient is now symptom free, patient is well hydrated. and as a result, I will discharge patient. Special discussion: I discussed with the patient/guardian in detail that at this point there is no indication for admission to the hospital. It is understood, however, that if the symptoms persist or worsen the patient needs to return immediately for re-evaluation. ED course: Reevaluated patient, I feel like haziness on left CXR more likely atelectasis given breast contusion given patient and family member deny cough or sob. + UTI on cath specimen. Neg procal and vitals normal. Patient states feels fine and wants to go home. No complaints. Return precautions given and understood.. 03/22 12:14 Order name: CBC with Diff 03/22 12:14 Order name: Basic Metabolic Panel; Complete Time: 13:14 rn 03/22 12:14 Order name: Urine Culture 03/22 12:14 Order name: Urine Microscopic Only 03/22 12:14 Order name: Troponin (emerg Dept Use Only); Complete Time: 13:14 rn 03/22 12:14 Order name: Procalcitonin; Complete Time: 13:42 rn 03/22 12:14 Order name: XRAY Chest (1 view); Complete Time: 13:14 rn 03/22 12:14 Order name: XRAY Humerus LEFT; Complete Time: 13:14 rn 03/22 12:14 Order name: CT Head Brain wo Cont; Complete Time: 13:14 rn 03/22 12:15 Order name: CBC with Automated Diff; Complete Time: 13:14 EDTX 03/22 13:39 Order name: Urine Dipstick--Ancillary (enter results) 03/22 13:46 Order name: Urine Dipstick-Ancillary; Complete Time: 13:52 EDTX 03/22 12:14 Order name: IV Start; Complete Time: 12:37 rn 03/22 12:14 Order name: Urine Dipstick-Ancillary (obtain specimen); Complete Time: 13:36 rn 03/22 12:14 Order name: EKG; Complete Time: 12:16 rn 03/22 12:14 Order name: EKG - Nurse/Tech; Complete Time: 12:37 rn EC:04 Rate is 74 beats/min. Rhythm is regular. Right axis deviation noted. QRS is positive in rn lead aVF and negative in lead I. MA interval is normal. QRS interval is normal. QT interval is normal. No Q waves. T waves are Normal. No ST changes noted. Clinical impression: NSR w/ Non-specific ST/T Changes. Interpreted by me. Reviewed by me. Administered Medications: 12:50 Drug: NS 0.9% 500 ml Route: IV; Rate: bolus; Site: left antecubital; ca1 13:40 Follow up: Response: No adverse reaction; IV Status: Completed infusion ca1 14:02 Drug: Rocephin 1 grams Route: IV; Rate: calculated rate; Site: left antecubital; ca1 14:47 Follow up: Response: No adverse reaction; IV Status: Completed infusion ca1 14:02 Drug: NS 0.9% 250 ml Route: IV; Rate: 1 bolus; Site: left antecubital; ca1 14:47 Follow up: Response: No adverse reaction; IV Status: Completed infusion ca1 Disposition: 03/22/20 14:03 Discharged to Home. Impression: Dehydration, Urinary tract infection, site not specified. - Condition is Stable. - Discharge Instructions: Dehydration, Adult, Urinary Tract Infection, Adult. - Prescriptions for cefpodoxime 100 mg Oral Tablet - take 2 tablet by ORAL route every 12 hours for 10 days take with food; 40 tablet. - Medication Reconciliation Form, Thank You Letter, Antibiotic Education, Prescription Opioid Use form. - Follow up: Private Physician; When: 2 - 3 days; Reason: Recheck today's complaints, Re-evaluation by your physician. - Problem is new. - Symptoms have improved. Signatures: Dispatcher [employer] EDTX Jian Núñez MD MD rn Baxter, Heather, RN RN Brenda Veronica RN RN ca1 Corrections: (The following items were deleted from the chart) 14:48 14:03 03/22/2020 14:03 Discharged to Home. Impression: Dehydration; Urinary tract ca1 infection, site not specified. Condition is Stable. Forms are Medication Reconciliation Form, Thank You Letter, Antibiotic Education, Prescription Opioid Use. Follow up: Private Physician; When: 2 - 3 days; Reason: Recheck today's complaints, Re-evaluation by your physician. Problem is new. Symptoms have improved. rn
--- NOTE | 2020-03-29 12:15 | ER ---
Nurse's Notes [facility] Name: Martha Tobar Age: 84 yrs Sex: Female : 1935 Arrival Date: 03/22/2020 Time: 11:53 Bed 2 Private MD: Diagnosis: Dehydration;Urinary tract infection, site not specified Presentation: 03/22 12:00 Chief complaint: Dizziness x 3 days, left shoulder and left chest wall pain after fall hb from standing 2 days ago. VAN Negative. Coronavirus screen: Proceed with normal triage. Ebola Screen: No symptoms or risks identified at this time. Initial Sepsis Screen: Does the patient meet any 2 criteria? No. Patient's initial sepsis screen is negative. Does the patient have a suspected source of infection? No. Patient's initial sepsis screen is negative. Risk Assessment: Do you want to hurt yourself or someone else? Patient reports no desire to harm self or others. Onset of symptoms was March 19, 2020. 12:00 Method Of Arrival: Wheelchair hb 12:00 Acuity: RIGOBERTO 3 hb Historical: - Allergies: 12:05 No Known Allergies; hb - PMHx: 12:05 Depression; GERD; Diabetes - IDDM; breast cancer; Hypertension; hb - PSHx: 12:05 Cholecystectomy; Hysterectomy; hb - Immunization history:: Adult Immunizations up to date. - Social history:: Smoking status: Patient denies any tobacco usage or history of. - Family history:: not pertinent. - Hospitalizations: : No recent hospitalization is reported. Screenin:35 Abuse screen: Denies threats or abuse. Denies injuries from another. Nutritional jl7 screening: No deficits noted. Tuberculosis screening: No symptoms or risk factors identified. Fall Risk Fall in past 12 months (25 points). No secondary diagnosis (0 pts). IV access (20 points). Ambulatory Aid- Gait- Weak (10 pts.). Mental Status- Oriented to own ability (0 pts). Total Delarosa Fall Scale indicates High Risk Score (45 or more points). Fall prevention measures have been instituted. Side Rails Up X 2 Placed Close to Nursing Station Frequent Obs/Assessments Occuring Family Present and informed to notify staff if the need to leave the bedside As available patient and family educated on Fall Prevention Program and Strategies. Assessment: 12:38 General: Appears in no apparent distress. comfortable, Behavior is calm, cooperative, ca1 appropriate for age. Pain: Complains of pain in left arm Pain began 2-3 days ago. Neuro: Level of Consciousness is awake, alert, obeys commands, Oriented to person, place, time, situation, Appropriate for age Reports dizziness, since 3 days ago a syncopal episode. Cardiovascular: Heart tones S1 S2 present Capillary refill < 3 seconds Patient's skin is warm and dry. Cardiovascular: Reports lightheadedness, syncope. Respiratory: Airway is patent Respiratory effort is even, unlabored, Respiratory pattern is regular, symmetrical, Breath sounds are clear bilaterally. GI: Abdomen is round non-distended, Bowel sounds present X 4 quads. Abd is soft and non tender X 4 quads. : No deficits noted. No signs and/or symptoms were reported regarding the genitourinary system. EENT: No deficits noted. No signs and/or symptoms were reported regarding the EENT system. Derm: Skin is intact, is healthy with good turgor, Skin is pink, warm \T\ dry. Musculoskeletal: Circulation, motion, and sensation intact. Capillary refill < 3 seconds. 13:45 Reassessment: Patient appears in no apparent distress at this time. No changes from ca1 previously documented assessment. Patient and/or family updated on plan of care and expected duration. Pain level reassessed. Patient is alert, oriented x 3, equal unlabored respirations, skin warm/dry/pink. 14:45 Reassessment: Patient appears in no apparent distress at this time. Patient is alert, ca1 oriented x 3, equal unlabored respirations, skin warm/dry/pink. NS bolus on-going. To be discharged once completed. Vital Signs: 12:00 BP 139 / 92; Pulse 89; Resp 16; Temp 97.8; Pulse Ox 100% on R/A; Weight 76.2 kg; Height hb 5 ft. 1 in. (154.94 cm); Pain 4/10; 12:55 BP 132 / 70; Pulse 79; Resp 18; Temp 97.5(TE); Pulse Ox 94% on R/A; mh5 13:45 BP 129 / 64; Pulse 80; Resp 15 S; Pulse Ox 96% on R/A; ca1 14:45 BP 129 / 67; Pulse 74; Resp 17 S; Pulse Ox 96% on R/A; ca1 12:00 Body Mass Index 31.74 (76.20 kg, 154.94 cm) hb ED Course: 11:53 Patient arrived in ED. ag5 12:04 Triage completed. hb 12:05 Arm band placed on. hb 12:07 Jian Núñez MD is Attending Physician. rn 12:27 CT Head Brain wo Cont In Process Unspecified. EDMS 12:35 Patient has correct armband on for positive identification. Placed in gown. Bed in low jl7 position. Call light in reach. Side rails up X2. quality assurance monitor on. Pulse ox on. NIBP on. Warm blanket given. 12:38 Initial lab(s) drawn, by me, sent to lab. Inserted saline lock: 20 gauge in left ca1 antecubital area, using aseptic technique. Blood collected. 12:46 Brenda Veronica, RN is Primary Nurse. ca1 12:53 XRAY Chest (1 view) In Process Unspecified. EDMS 12:53 XRAY Humerus LEFT In Process Unspecified. EDMS 12:54 Patient has correct armband on for positive identification. Placed in gown. Bed in low mh5 position. Call light in reach. Side rails up X2. Adult w/ patient. Warm blanket given. quality assurance monitor on. Pulse ox on. NIBP on. 12:54 EKG done, by ED staff, reviewed by Jian Núñez MD. [facility] 13:34 Straight cath inserted, using sterile technique, 16 Fr. Returned light orange. Patient mh5 tolerated well. 13:36 Urine Culture Sent. [facility] 13:36 Urine Microscopic Only Sent. [facility] 13:36 CBC with Diff Sent. [facility] 13:37 Urine collected: straight cath specimen, Amount Returned: 300mL light orange. 5 13:42 Urine Dipstick--Ancillary (enter results) Sent. mh5 14:46 No provider procedures requiring assistance completed. ca1 14:47 IV discontinued, intact, bleeding controlled, No redness/swelling at site. Pressure ca1 dressing applied. Administered Medications: 12:50 Drug: NS 0.9% 500 ml Route: IV; Rate: bolus; Site: left antecubital; ca1 13:40 Follow up: Response: No adverse reaction; IV Status: Completed infusion ca1 14:02 Drug: Rocephin 1 grams Route: IV; Rate: calculated rate; Site: left antecubital; ca1 14:47 Follow up: Response: No adverse reaction; IV Status: Completed infusion ca1 14:02 Drug: NS 0.9% 250 ml Route: IV; Rate: 1 bolus; Site: left antecubital; ca1 14:47 Follow up: Response: No adverse reaction; IV Status: Completed infusion ca1 Outcome: 14:03 Discharge ordered by . rn 14:47 Discharged to home via wheelchair, with family. ca1 14:47 Condition: stable 14:47 Discharge instructions given to patient, Instructed on discharge instructions, follow up and referral plans. Demonstrated understanding of instructions, follow-up care, medications, Prescriptions given X 1. 14:48 Patient left the ED. ca1 Addendum: 03/27/2020 16:07 Addendum: Culture Results: Positive urine culture. Bacteria is resistant to, has s s intermediate sensitivity, or is not tested against prescribed antibiotics. Report given to TANESHA for further evaluation and then to motorboat operator for follow up with patient. Phone call Attempt #1 Attempted to call patient to follow up. Pt seemed as if she did not fully understand what was being said, or perhaps Faroese was a second language. Pt hung up the phone. Will give culture report to ED director to send certified letter. Signatures: Dispatcher [employer] EDMS Jian Núñez MD MD rn Smirch, Shelby, RN RN Freida Singer RN RN Natalie Quigley [facility] Bertram Davis RN RN jl7 Brenda Veronica RN RN ca1 Sanjeev Palma ag5
== END 2020-03-22 14:48 | disposition home or self-care (01) ==
LOC: ER 11:50
DX: E86.0 Dehydration (principal); N39.0 Urinary tract infection, site not specified; I10 Essential (primary) hypertension; Z85.3 Personal history of malignant neoplasm of breast
CPT/HCPCS: 96365; 96361; 96368; 93005; 87088; 85025; 87086; 80048; 36415; 87077; 87186; 84484; 84145; 70450; 71045; 73060; 51702; 99285; J0696; J7030; J7040; 81003; 81015

== ENCOUNTER 2020-12-02 12:17 | Inpatient (IN) | payer OTHER ==
--- OUTSIDE RECORDS SUMMARY | 2020-12-02 12:19 | XMS REPORT | Continuity of Care Document ---
:1935 Author Organization [facility] t Address [address] [place] [address] Dr. Villa [address] [place] [id number] Care Team Providers Name Role Phone Unavailable Unavailable Unavailable Problems This patient has no known problems. Allergies, Adverse Reactions, Alerts This patient has no known allergies or adverse reactions. Medications Ordered Filled Start Stop Current Ordering Indication Dosage Frequency Signature Comments Components Source Medication Medication Date Date Medication? Clinician (SIG) Name Name Duloxetine Duloxetine Yes Felix TAKE [address] [facility] HCl HCl [facility] CAPSULE [facility] Galantamine Galantamine Yes Felix TAKE [address] [facility] Hydrobromid Hydrobromid [facility] TABLET [facility] TWICE A l DAY [facility] Clin[facility] Meclizine Meclizine Yes Felix TAKE [address] HCl HCl [facility]acker TABLET [facility] TIMES A l DAY [facility]pati NEEDED ent Clinics Mirtazapine Mirtazapine Yes Felix TAKE [address] [facility] Thacker TABLET [facility] DAY [facility] AT BEDTIME l NEEDED [facility]pati ent Clinics Albuterol Albuterol Yes Felix TAKE [address] Sulfate HFA Sulfate HFA [facility]acker PUFFS [facility] EVERY 4 l HOURS Outpati NEEDED ent Clinics Metformin Metformin Yes Felix TAKE [address] HCl HCl [facility]acker TABLET BY [facility] TWICE A l DAY WITH Outpati MEALS ent Clinics Carbidopa-L Carbidopa-L Yes Felix TAKE [address] [facility] evodopa evodopa Thacker TABLET BY [facility] TWICE A l DAY [facility] ent Clinics Losartan Losartan Yes Felix [address] Potassium Potassium [facility] Letrozole Letrozole Yes Felix TAKE [address] [facility]acker TABLET [facility] EVERY DAY [facility] Ciprofloxac Ciprofloxac Yes Felix not [facility] in HCl in HCl Thacker defined [facility] Pantoprazol Pantoprazol Yes Felix TAKE [address] [facility] e Sodium e Sodium [facility]acker TABLET BY [facility] EVERY DAY l [facility]pati ent Clinics Amlodipine Amlodipine Yes Felix TAKE [address] [facility] Besylate Besylate [facility]acker TABLET [facility] Levemir Levemir Yes Felix not [facility] FlexTouch FlexTouch [facility] defined [facility] Procedures This patient has no known procedures. Encounters Start End Encounter Admission Attending Care Care Encounter Source Date/Time Date/Time Type Type Clinicians Facility Department ID 2020-09-12 2020-09-12 [id number] 2020-08-30 2020-08-30 Out[facility] [id number] [facility] 2020-08-19 2020-08-19 Out[facility] [id number] [facility] 2020-08-16 2020-08-16 Outpatient [facility] [id number] [facility] 2020-07-29 2020-07-29 Outpatient [facility] [id number] [facility] 2020-06-22 2020-06-22 Outpatient Ike Mai [id number] [facility] 11:[facility] 11[facility]00 [facility] 2020-01-12 2020-01-12 Outpatient Ike Ramirest [id number] [facility] 09:30[facility] 09[facility]30[facility] [place] [facility] Results This patient has no known results.
[2020-12-02 14:27] LABS: Basophils % 0.5 % (0-1.3); Hematocrit 35.8 % (36.0-45.0); Lymphocytes % 27.5 % (15.3-44.8); MPV 9.7 fL (7.6-11.3); RBC Red Blood Cell Count 4.26 M/uL (3.86-4.86)
[2020-12-02 14:33] LABS: Protime INR 1.08
[2020-12-02] MEDS ORDERED: NA CHLORIDE 0.9% 250 ML ONE (14:34)
--- NOTE | 2020-12-02 14:38 | RAD REPORT ---
EXAM DESCRIPTION: CT - Head Brain Wo Cont - 12/02/2020 2:29 pm CLINICAL HISTORY: MENTAL STATUS CHANGE Headache, drowsiness COMPARISON: Head Brain Wo Cont dated 03/22/2020; Head Brain Wo Cont dated 03/06/2019 TECHNIQUE: All CT scans are performed using dose optimization technique as appropriate and may inclu de automated exposure control or mA/KV adjustment according to patient size. FINDINGS: No intracranial hemorrhage, hydrocephalus or extra-axial fluid collection.Significant brai n atrophy pattern is stable.No areas of brain edema or evidence of midline shift. The paranasal sinuses and mastoids are clear. The calvarium is intact. IMPRESSION: No acute intracranial abnormality.
[2020-12-02 14:46] LABS: ALT/SGPT 14 U/L (12-78); AST/SGOT 14 U/L (15-37); Albumin 3.6 g/dL (3.4-5.0); Alkaline Phosphatase 75 U/L (45-117); BUN Blood Urea Nitrogen 22 mg/dL (7-18); Bicarbonate 25 mmol/L (21-32); Bilirubin Direct 0.1 mg/dL (0-0.2); Bilirubin Total 0.5 mg/dL (0.2-1.0); Glucose Level 141 mg/dL (74-106); Magnesium 1.6 mg/dL (1.8-2.4); NT PRO-BNP 205 pg/mL (<450); Potassium 4.5 mmol/L (3.5-5.1); Protein, Total 8.4 g/dL (6.4-8.2); Sodium Level 134 mmol/L (136-145); Troponin (Emerg Dept Use Only) < 0.02 ng/mL (0.0-0.045)
[2020-12-02 15:20] LABS: Urine Blood NEGATIVE (NEG); Urine Glucose NEGATIVE (NEG); Urine Protein TRACE (NEG)
--- NOTE | 2020-12-02 15:24 | RAD REPORT ---
EXAM DESCRIPTION: RAD - Chest Single View - 12/02/2020 3:13 pm CLINICAL HISTORY: AMS Chest pain. COMPARISON: Chest Single View dated 03/22/2020; Chest Single View dated 03/10/2019; Chest Single View dated 03/06/2019; Chest Pa And Lat (2 Views) dated 04/13/2018 FINDINGS: Portable technique limits examination quality. Emphysematous changes are present throughout the lungs. Focally prominent left mid lung opacity is no thee, more conspicuous than on comparative studies. The heart is normal in size. Right axillary ewa dissection clips.Recommend followup CT chest for further evaluation.
[2020-12-02 15:29] LABS: Urine Bacteria LOADED /HPF (<20); Urine RBC NONE SEEN /HPF (NONE SEEN)
--- NOTE | 2020-12-02 15:49 | EDPHYS ---
Physician Documentation [facility] Name: Martha Tobar Age: 85 yrs Sex: Female : 1935 Arrival Date: 12/02/2020 Time: 12:20 Bed 17 Private MD: [facility] ED Physician Yon Bush HPI: 12/02 13:55 This 85 yrs old Female presents to ER via Wheelchair with complaints of cp Confusion. 13:55 The patient presents with confusion. cp 13:55 Onset: The symptoms/episode began/occurred yesterday. cp 13:55 Possible causes: urinary tract infection. Current symptoms: In the emergency department cp the patient's symptoms are unchanged from the initial presentation, despite home interventions. 13:55 Daughter reports patient having dark colored and "foamy" urine. cp Historical: - Allergies: 12:34 No Known Allergies; sv - Home Meds: 12:34 galantamine Oral [Active]; sv - PMHx: 12:34 breast cancer; Depression; Diabetes - IDDM; GERD; Hypertension; sv - PSHx: 12:34 Cholecystectomy; Hysterectomy; sv - Immunization history:: Flu vaccine is up to date. - Social history:: Smoking status: Patient/guardian denies using tobacco, the patient reports quitting approximately 20 years ago. ROS: 14:00 : Positive for foul smelling urine. cp 14:00 Constitutional: Negative for body aches, chills, fever, poor PO intake. cp 14:00 Cardiovascular: Negative for chest pain, edema. 14:00 Respiratory: Negative for cough, shortness of breath, wheezing. 14:00 Abdomen/GI: Negative for abdominal pain, nausea, vomiting, and diarrhea, constipation, black/tarry stool, rectal bleeding. 14:00 Back: Positive for pain at rest, of the mid back area. 14:00 Skin: Negative for rash. 14:00 Neuro: Positive for weakness, confusion, Negative for headache, speech changes, syncope. Exam: 14:05 Constitutional: The patient appears in no acute distress, alert, awake, cp non-diaphoretic, non-toxic, well developed, well nourished. 14:05 Head/Face: Normocephalic, atraumatic. cp 14:05 Eyes: Periorbital structures: appear normal, Pupils: equal, round, and reactive to light and accomodation, Extraocular movements: intact throughout, Conjunctiva: normal, no exudate, no injection, Sclera: no appreciated abnormality, Lids and lashes: appear normal, bilaterally. 14:05 ENT: External ear(s): are unremarkable, Nose: is normal, Posterior pharynx: Airway: no evidence of obstruction, patent. 14:05 Neck: ROM/movement: is normal, is supple, without pain, no range of motions limitations, no meningismus. 14:05 Chest/axilla: Inspection: normal, Palpation: is normal, no crepitus, no tenderness. 14:05 Cardiovascular: Rate: normal, Rhythm: regular, Edema: is not appreciated, JVD: is not appreciated. 14:05 Respiratory: the patient does not display signs of respiratory distress, Respirations: normal, no use of accessory muscles, no retractions, labored breathing, is not present, Breath sounds: are clear throughout, no decreased breath sounds, no stridor, no wheezing. 14:05 Abdomen/GI: Inspection: abdomen appears normal, Bowel sounds: active, all quadrants, Palpation: abdomen is soft and non-tender, in all quadrants. 14:05 Back: pain, that is mild, of the mid back area. 15:25 ECG was reviewed by the Attending Physician. cp Vital Signs: 12:34 BP 124 / 59; Pulse 93; Resp 17; Temp 97.6; Pulse Ox 98% ; Weight 79.38 kg; Height 4 ft. sv 11 in. (149.86 cm); Pain 0/10; 14:30 BP 137 / 68; Pulse 67; Resp 18; Pulse Ox 95% on R/A; ph 15:53 BP 145 / 62; Pulse 69; Resp 18; Pulse Ox 94% on R/A; ph 17:00 BP 144 / 105; Pulse 81; Resp 18; Pulse Ox 94% on R/A; ph 18:28 BP 137 / 67; Pulse 89; Resp 18; Pulse Ox 98% on 2 lpm NC; ph 19:17 BP 135 / 73 LA Supine (auto/); Pulse 80 MON; Resp 18 S; Pulse Ox 95% on R/A; sf 12:34 Body Mass Index 35.35 (79.38 kg, 149.86 cm) sv MDM: 13:27 Patient medically screened. cp 14:00 Differential Diagnosis: CVA, electrolyte abnormality, hypoglycemia, pneumonia, sepsis, cp UTI, volume depletion. 15:45 Data reviewed: vital signs, nurses notes, lab test result(s), EKG, radiologic studies, cp CT scan, plain films. 15:45 Test interpretation: by ED physician or midlevel provider: ECG. Counseling: I had a cp detailed discussion with the patient and/or guardian regarding: the historical points, exam findings, and any diagnostic results supporting the discharge/admit diagnosis, lab results, radiology results, the need for further work-up and treatment in the hospital. Physician consultation: Krunal Núñez MD was called at 15:45, was contacted at 15:45, regarding admission, to the telemetry unit. patient's condition. 12/02 13:48 Order name: Basic Metabolic Panel cp 12/02 13:48 Order name: CBC with Diff cp 12/02 13:48 Order name: LFT's cp 12/02 13:48 Order name: Magnesium cp 12/02 13:48 Order name: NT PRO-BNP cp 12/02 13:48 Order name: PT-INR; Complete Time: 14:41 cp 02/ 13:48 Order name: Troponin (emerg Dept Use Only); Complete Time: 14:53 cp 02 13:48 Order name: Urine Microscopic Only; Complete Time: 15:42 cp 02/ 13:48 Order name: Procalcitonin; Complete Time: 15:29 cp 02/ 13:48 Order name: Lactate; Complete Time: 15:29 cp 02/ 15:30 Interpretation: Abnormal: LAC 3.0. cp 02/ 13:48 Order name: Blood Culture Adult (2) cp / 13:49 Order name: Basic Metabolic Panel; Complete Time: 14:53 EDMS 02/ 14:53 Interpretation: Normal except: NA 134; GLUC 141; BUN 22; GFR 65. cp 02/ 13:49 Order name: CBC with Automated Diff; Complete Time: 14:41 EDMS 02/ 14:41 Interpretation: Normal except: HGB 11.5; HCT 35.8; MCH 26.9; RDW 16.1. cp 02/ 13:49 Order name: Liver (Hepatic) Function; Complete Time: 14:53 EDMS 02/ 13:48 Order name: CT Head Brain wo Cont; Complete Time: 14:41 cp 02/04 14:42 Interpretation: Report reviewed. cp 12/02 13:48 Order name: XRAY Chest (1 view); Complete Time: 15:29 cp 12/02 13:48 Order name: EKG; Complete Time: 13:50 cp 12/02 13:48 Order name: Cardiac monitoring; Complete Time: 15:11 cp 12/02 13:48 Order name: EKG - Nurse/Tech; Complete Time: 15:33 cp 02 13:49 Order name: Magnesium; Complete Time: 14:53 EDMS 02 13:49 Order name: NT PRO-BNP; Complete Time: 14:53 EDMS 12/02 15:15 Order name: Urine Dipstick--Ancillary (enter results); Complete Time: 15:29 em1 12/02 15:30 Order name: Urine Culture EDMS 12/02 15:45 Order name: COVID-19 : Document "Date of Symptom Onset" if Symptomatic. cp 12/02 17:43 Order name: SARS-COV-2 RT PCR EDMS 12/02 18:46 Order name: Lactate Sepsis 2 HR Follow-up EDMS / 13:48 Order name: IV Saline Lock; Complete Time: 14:19 cp 12/02 13:48 Order name: Labs collected and sent; Complete Time: 14:19 cp 12/02 13:48 Order name: O2 Per Protocol; Complete Time: 14:19 cp 12/02 13:48 Order name: O2 Sat Monitoring; Complete Time: 14:19 cp 12/02 13:48 Order name: Urine Dipstick-Ancillary (obtain specimen); Complete Time: 15:11 cp 12/02 13:48 Order name: Cath; Complete Time: 15:11 cp EC:25 Rate is 69 beats/min. Rhythm is regular. CO interval is normal. QRS interval is cp prolonged at 138 msec. QT interval is normal. T waves are Inverted in leads III, aVR. Interpreted by me. Reviewed by me. Administered Medications: 14:47 Drug: NS 0.9% 250 ml Route: IV; Rate: bolus; Site: left forearm; ph 15:09 Follow up: IV Status: Completed infusion; IV Intake: 250ml ph 15:50 Drug: NS 0.9% (30 ml/kg) 30 ml/kg Route: IV; Rate: bolus; Site: left forearm; ph 18:15 Follow up: Response: No adverse reaction; IV Status: Completed infusion; IV Intake: ph 2000ml 15:51 Drug: Magnesium Sulfate 1 grams Route: IVPB; Infused Over: 1 hrs; Site: left forearm; ph 16:55 Follow up: Response: No adverse reaction; IV Status: Completed infusion ph 15:51 Drug: Cefepime 2 grams Route: IVPB; Rate: 200 ml/hr; Infused Over: 30 mins; Site: left ph forearm; 16:25 Follow up: Response: No adverse reaction; IV Status: Completed infusion ph Disposition: 16:00 Chart complete. cp 12/03 06:07 Co-signature as Attending Physician, Yon Bush MD I agree with the assessment and kdr plan of care. Disposition: 12/02/20 15:47 Hospitalization ordered by Krunal Núñez for Inpatient Admission. Preliminary diagnosis are Altered mental status, unspecified, Urinary tract infection, site not specified. - Bed requested for Telemetry/MedSurg (Inpatient). - Status is Inpatient Admission. ea - Condition is Stable. - Problem is new. - Symptoms have improved. Signatures: Dispatcher [employer] EDBrianna Cruz RN RN Hilda Mario RN RN Yon Bush MD MD [facility] Florinda Diaz RN RN ph Page, Corey, PA PA cp Antunez, Elena, RN RN ea Corrections: (The following items were deleted from the chart) 12/02 18:40 15:47 Hospitalization Ordered by Krunal Núñez MD for Inpatient Admission. Preliminary diagnosis is Altered mental status, unspecified; Urinary tract infection, site not specified. Bed requested for Telemetry/MedSurg (Inpatient). Status is Inpatient Admission. Condition is Stable. Problem is new. Symptoms have improved. cp 20:04 18:40 12/02/2020 15:47 Hospitalization Ordered by Krunal Núñez MD for Inpatient ea Admission. Preliminary diagnosis is Altered mental status, unspecified; Urinary tract infection, site not specified. Bed requested for Telemetry/MedSurg (Inpatient). Status is Inpatient Admission. Condition is Stable. Problem is new. Symptoms have improved.
--- NOTE | 2020-12-02 15:49 | ER ---
Nurse's Notes [facility] Name: Martha Tobar Age: 85 yrs Sex: Female : 1935 Arrival Date: 12/02/2020 Time: 12:20 Bed 17 Private MD: Felix Thacker Diagnosis: Altered mental status, unspecified;Urinary tract infection, site not specified Presentation: 12/02 12:34 Chief complaint: Patient states: Increasing confusion since yesterday. Daughter noticed sv her urine was foamy and yellow. No N/V/D. No fever. Coronavirus screen: Client denies travel out of the [place] in the last 14 days. At this time, the client does not indicate any symptoms associated with coronavirus-19. Ebola Screen: Patient denies travel to an Ebola-affected area in the 21 days before illness onset. Initial Sepsis Screen: Does the patient meet any 2 criteria? HR > 90 bpm. No. Patient's initial sepsis screen is negative. Does the patient have a suspected source of infection? Yes: Dysuria/Frequency/Urgency/UTI. Risk Assessment: Do you want to hurt yourself or someone else? Patient reports no desire to harm self or others. Onset of symptoms was December 01, 2020. 12:34 Method Of Arrival: Wheelchair sv 12:34 Acuity: RIGOBERTO 3 sv Historical: - Allergies: 12:34 No Known Allergies; sv - Home Meds: 12:34 galantamine Oral [Active]; sv - PMHx: 12:34 breast cancer; Depression; Diabetes - IDDM; GERD; Hypertension; sv - PSHx: 12:34 Cholecystectomy; Hysterectomy; sv - Immunization history:: Flu vaccine is up to date. - Social history:: Smoking status: Patient/guardian denies using tobacco, the patient reports quitting approximately 20 years ago. Screenin:20 Abuse screen: Denies threats or abuse. Denies injuries from another. Nutritional ph screening: No deficits noted. Tuberculosis screening: No symptoms or risk factors identified. Fall Risk None identified. Assessment: 14:20 General: Appears in no apparent distress. comfortable, well groomed, Behavior is calm, ph cooperative, appropriate for age. Pain: Denies pain. Neuro: Level of Consciousness is awake, alert, obeys commands, Oriented to person, place. Cardiovascular: Capillary refill < 3 seconds in bilateral fingers Patient's skin is warm and dry. Respiratory: Airway is patent Respiratory effort is even, unlabored, Respiratory pattern is regular, symmetrical. GI: Patient currently denies abdominal pain, diarrhea, nausea, vomiting. : Parent/caregiver report the patient having urinary frequency dark, foul smelling urine. Derm: Skin is intact, is healthy with good turgor, Skin is pink, warm \T\ dry. Musculoskeletal: Circulation, motion, and sensation intact. Range of motion: intact in all extremities. 15:55 Reassessment: Patient appears in no apparent distress at this time. Patient and/or ph family updated on plan of care and expected duration. Pain level reassessed. Patient is alert, oriented x 3, equal unlabored respirations, skin warm/dry/pink. 17:00 Reassessment: Patient appears in no apparent distress at this time. Patient and/or ph family updated on plan of care and expected duration. Pain level reassessed. Patient is alert, oriented x 3, equal unlabored respirations, skin warm/dry/pink. 18:29 Reassessment: Patient appears in no apparent distress at this time. Patient and/or ph family updated on plan of care and expected duration. Pain level reassessed. Patient is alert, oriented x 3, equal unlabored respirations, skin warm/dry/pink. 19:27 General: Appears in no apparent distress. comfortable, well groomed, Behavior is calm, sf cooperative, appropriate for age. Pain: Denies pain. Neuro: Level of Consciousness is awake, alert, obeys commands. Cardiovascular: No deficits noted. Patient's skin is warm and dry. Respiratory: No deficits noted. Airway is patent Respiratory effort is even, unlabored, Respiratory pattern is regular, symmetrical. :. Vital Signs: 12:34 BP 124 / 59; Pulse 93; Resp 17; Temp 97.6; Pulse Ox 98% ; Weight 79.38 kg; Height 4 ft. sv 11 in. (149.86 cm); Pain 0/10; 14:30 BP 137 / 68; Pulse 67; Resp 18; Pulse Ox 95% on R/A; ph 15:53 BP 145 / 62; Pulse 69; Resp 18; Pulse Ox 94% on R/A; ph 17:00 BP 144 / 105; Pulse 81; Resp 18; Pulse Ox 94% on R/A; ph 18:28 BP 137 / 67; Pulse 89; Resp 18; Pulse Ox 98% on 2 lpm NC; ph 19:17 BP 135 / 73 LA Supine (auto/); Pulse 80 MON; Resp 18 S; Pulse Ox 95% on R/A; sf 12:34 Body Mass Index 35.35 (79.38 kg, 149.86 cm) sv ED Course: 12:20 Patient arrived in ED. mr 12:21 Felix Thacker DO is Private Physician. mr 12:33 Arm band placed on. sv 12:36 Triage completed. sv 13:21 Sin Boyer PA is PHCP. cp 13:21 Yon Bush MD is Attending Physician. cp 13:24 Florinda Diaz RN is Primary Nurse. ph 14:05 Inserted saline lock: 22 gauge in left forearm, using aseptic technique. Blood ph collected. 14:20 Patient has correct armband on for positive identification. Placed in gown. Bed in low ph position. Call light in reach. Side rails up X2. Pulse ox on. NIBP on. Door closed. Noise minimized. Warm blanket given. 14:29 CT Head Brain wo Cont In Process Unspecified. EDMS 15:13 XRAY Chest (1 view) In Process Unspecified. EDMS 15:47 Krunal Núñez MD is Hospitalizing Provider. cp 17:02 No provider procedures requiring assistance completed. Patient admitted, IV remains in ph place. 19:42 Primary Nurse role handed off by Florinda Diaz RN mw2 19:45 Report given to TAMY Dawson for room 220. sf Administered Medications: 14:47 Drug: NS 0.9% 250 ml Route: IV; Rate: bolus; Site: left forearm; ph 15:09 Follow up: IV Status: Completed infusion; IV Intake: 250ml ph 15:50 Drug: NS 0.9% (30 ml/kg) 30 ml/kg Route: IV; Rate: bolus; Site: left forearm; ph 18:15 Follow up: Response: No adverse reaction; IV Status: Completed infusion; IV Intake: ph 2000ml 15:51 Drug: Magnesium Sulfate 1 grams Route: IVPB; Infused Over: 1 hrs; Site: left forearm; ph 16:55 Follow up: Response: No adverse reaction; IV Status: Completed infusion ph 15:51 Drug: Cefepime 2 grams Route: IVPB; Rate: 200 ml/hr; Infused Over: 30 mins; Site: left ph forearm; 16:25 Follow up: Response: No adverse reaction; IV Status: Completed infusion ph Intake: 15:09 IV: 250ml; Total: 250ml. ph 18:15 IV: 2000ml; Total: 2250ml. ph Outcome: 15:47 Decision to Hospitalize by Provider. cp 19:44 Admitted to Med/surg room 220. sf 19:44 Condition: stable 20:04 Patient left the ED. tristan Signatures: Dispatcher [employer] EDMS Brianna Rogers RN RN LandJaneFlorinda RN RN ph Page, Corey, PA PA cp Antunez, Elena, RN RN ea [place], [facility] Misha Gibson RN RN sf Corrections: (The following items were deleted from the chart) 18:30 18:15 Response: No adverse reaction; IV Intake: 2000ml ph ph
[2020-12-02] MEDS ORDERED: NA CHLORIDE 0.9% 2,000 ML ONE (15:53)
[2020-12-02] MEDS ORDERED: MAGNESIUM SULFATE 1 gm IVPB 1 GM/100 ML BAG IV ONE (15:53)
[2020-12-02] MEDS ORDERED: CEFEPIME/SWI 1gm 20 ML ONE (15:54)
--- NOTE | 2020-12-02 16:30 | P.HP ---
Certification for Inpatient Patient admitted to: Inpatient With expected LOS: >2 Midnights Practitioner: I am a practitioner with admitting privileges, knowledge of patient current condition, hospital course, and medical plan of care. Services: Services provided to patient in accordance with Admission requirements found in Title 42 Section 412.3 of the Code of Federal Regulations Patient History Date of Service: 12/02/20 Reason for admission: UTI, altered mental status History of Present Illness: 85 yo F, PMH: DM 2, HTN, depression, Parkinsons, R breast cancer s/p mastectomy who presents to ED with ~1-2 days of confusion, agitation, foul smelling urine. Patient is accompanied by the daughter who provides history. She says this is how the patient gets when she has had UTIs previously. In the last year she has had 2 other UTIs. Daughter otherwise denies patient complaining of any fevers/chills, no shortness of breath, no chest pain, no abdominal pain. No new rashes or lesions. Patient is currently pleasantly confused, she denies any current complaints/pain, denies dysuria. Daughter states over the past several months the patient has needed more help with most things - cooking, cleaning, taking care of herself. She is able to bathe herself. Mostly help due to parkinsons, mild tremor. Workup in the ED notable for no leukocytosis, lactic acidosis of 3.0, negative troponin, negative pro calcitonin, UA grossly positive for UTI. COVID negative. Allergies No Known Allergies Allergy (Verified 07/24/16 15:48) Home Medications: Amlodipine [Norvasc] 5 mg PO DAILY 07/20/16 Insulin Detemir [Levemir*] 135 unit SQ BEDTIME 07/20/16 Letrozole [Femara] 2.5 mg PO DAILY 07/20/16 Liraglutide [Victoza 2-Dedrick] 18 mg SQ DAILY 07/20/16 Lovastatin 10 mg PO DAILY 07/20/16 Metformin HCl [Glucophage] 500 mg PO BIDWM 07/20/16 Metoprolol Succinate [Toprol Xl] 100 mg PO DAILY 07/20/16 Omeprazole 20 mg PO DAILY 07/20/16 Valsartan [Diovan] 320 mg PO DAILY 07/20/16 Codeine/APAP [Tylenol W/Codeine #3 tab] 1 tab PO Q4H PRN #40 tab 07/25/16 Promethazine Tab [Phenergan] 12.5 mg PO Q6HP PRN #10 tab 07/25/16 Sulfamethoxazole/Trimethoprim [Bactrim Ds Tablet] 1 each PO BID #12 tablet 07/25/16 - Past Medical/Surgical History Diabetic: Yes -: diabetes -: htn -: hld -: fibromyalgia -: Breast cancer -: Parkinson's -: Depression -: Hysterectomy -: cholycystectomy -: Right mastectomy - Family History Mother -: Hypertension - Social History Smoking Status: Former smoker (Quit 15 years ago) Alcohol use: No CD- Drugs: No Caffeine use: Yes Place of Residence: Home Review of Systems 10-point ROS is otherwise unremarkable Physical Examination - Studies Laboratory Data (last 24 hrs) 12/02/20 14:05: PT 12.4, INR 1.08 12/02/20 14:05: WBC 7.40, Hgb 11.5 L, Hct 35.8 L, Plt Count 185 12/02/20 14:05: Sodium 134 L, Potassium 4.5, BUN 22 H, Creatinine 0.84, Glucose 141 H, Magnesium 1.6 L, Total Bilirubin 0.5, AST 14 L, ALT 14, Alkaline Phosphatase 75 Assessment and Plan - Advance Directives Does patient have a Living Will: No Does patient have a Durable POA for Healthcare: No Physician Review Additional Text: Physical Exam: Gen: NAD, confused, resting comfortably in bed HEENT: normal conjunctiva, MMM CV: RRR, no edema Pulm: CTAB, no wheeze/rales Abd: soft, NTND Ext: no rash, no edema Neuro: moves all extremities, str 5/5, CNII-XII grossly intact. oriented x1, pleasantly confused at this time Problem List Acute metabolic encephalopathy secondary to UTI, cystitis DM2 COPD HTN HLD Depression h/o breast cancer s/p mastectomy -vitals ok, does not appear septic -UA consistent with UTI -lactate elevated -continue IVF, recheck lactate -treat UTI with rocephin, f/u cultures -obtain home meds, restart as appropriate -insulin sliding scale for now, accuchecks -CT brain negative VTE: lovenox Code: full Dispo: anticipate dc home in ~48hrs, f/u urine culture pt has home O2 for PRN use for COPD Time Spent Managing Pts Care (In Minutes): 60
[2020-12-02] MEDS ORDERED: CEFTRIAXONE 1 GM/NS 50 ML 1 GM/50 ML BAG IV SCH (20:02)
[2020-12-02] MEDS: INSULIN -REGULAR HUMAN 50 UNIT/0.5 ML ML SQ SCH (21:00)
[2020-12-02] MEDS: NA CHLORIDE 0.9% 1,000 ML IV SCH (21:49)
[2020-12-02] MEDS: CEFTRIAXONE/SWI 1gm 1 GM/10 ML SYR IV SCH (21:50)
[2020-12-02 23:33] VITALS: BMI 30.3
[2020-12-03 06:04] LABS: Absolute Lymphocytes (CBC) 1.4 K/uL (0.7-4.9); Basophils % 0.6 % (0-1.3); Hematocrit 33.6 % (36.0-45.0); Lymphocytes % 20.5 % (15.3-44.8); MPV 9.9 fL (7.6-11.3); RBC Red Blood Cell Count 4.09 M/uL (3.86-4.86)
[2020-12-03 06:23] LABS: Albumin 3.3 g/dL (3.4-5.0); Bilirubin Total 0.7 mg/dL (0.2-1.0); Magnesium 1.6 mg/dL (1.8-2.4); Potassium 4.3 mmol/L (3.5-5.1); Protein, Total 7.8 g/dL (6.4-8.2)
[2020-12-03] MEDS: NA CHLORIDE 0.9% 1,000 ML IV SCH ×2 (06:50→20:04)
[2020-12-03] MEDS: INSULIN -REGULAR HUMAN 50 UNIT/0.5 ML ML SQ SCH ×4 (07:30→21:00)
[2020-12-03] MEDS: PANTOPRAZOLE 40MG TABLET PO SCH (08:46)
[2020-12-03] MEDS: CARBIDOPA/LEVODOPA 25/100 TAB PO SCH (08:46)
[2020-12-03] MEDS: ENOXAPARIN 40 MG/0.4 ML SQ SCH (08:46)
[2020-12-03] MEDS: DULOXETINE 30 MG CAP PO SCH (08:46)
[2020-12-03] MEDS: HOME MED 1 EA UNK (Galantamine Hbr [Galantamine Er] 8 MG Cap24h.Pel) PO SCH (08:47)
--- NOTE | 2020-12-03 17:59 | P.PN ---
Subjective Date of Service: 12/03/20 Chief Complaint: UTI, altered mental status Subjective: Improving (Still with some confusion, daughter feels she has gotten about 30% better back to baseline. Without complaints) Review of Systems 10-point ROS is otherwise unremarkable Physical Examination - Vital Signs Temperature: 97.6 F Blood Pressure: 130/77 Pulse: 97 Respirations: 20 Pulse Ox (%): 94 Assessment & Plan Physician Review Additional Text: Physical Exam: Gen: NAD, confused, resting comfortably in bed HEENT: normal conjunctiva, MMM CV: RRR, no edema Pulm: CTAB, no wheeze/rales Abd: soft, NTND Ext: no rash, no edema Neuro: moves all extremities Problem List Acute metabolic encephalopathy secondary to UTI, cystitis DM2 COPD HTN HLD Depression h/o breast cancer s/p mastectomy -UA consistent with UTI, 4+ GNRs -continue rocephin, f/u culture -obtain home meds, restart as appropriate -insulin sliding scale for now, accuchecks -CT brain negative VTE: lovenox Code: full Dispo: anticipate dc home in ~24-48hrs, f/u urine culture pt has home O2 for PRN use for COPD Time Spent Managing Pts Care (In Minutes): 35
[2020-12-03] MEDS ORDERED: ATORVASTATIN 10 MG TAB PO SCH (21:00)
[2020-12-03] MEDS: CEFTRIAXONE/SWI 1gm 1 GM/10 ML SYR IV SCH (21:37)
[2020-12-04 06:04] LABS: Magnesium 1.8 mg/dL (1.8-2.4)
[2020-12-04 06:13] VITALS: TEMP 97.3
[2020-12-04] MEDS: NA CHLORIDE 0.9% 1,000 ML IV SCH (06:42)
[2020-12-04] MEDS ORDERED: MAGNESIUM SULFATE 1 gm IVPB 1 GM/100 ML BAG IV ONE (07:09)
[2020-12-04] MEDS: INSULIN -REGULAR HUMAN 50 UNIT/0.5 ML ML SQ SCH (07:30)
[2020-12-04] MEDS: ENOXAPARIN 40 MG/0.4 ML SQ SCH (08:43)
[2020-12-04] MEDS: PANTOPRAZOLE 40MG TABLET PO SCH (08:43)
[2020-12-04] MEDS: DULOXETINE 30 MG CAP PO SCH (08:43)
[2020-12-04] MEDS: CARBIDOPA/LEVODOPA 25/100 TAB PO SCH (08:43)
[2020-12-04] MEDS: HOME MED 1 EA UNK (Galantamine Hbr [Galantamine Er] 8 MG Cap24h.Pel) PO SCH (08:50)
[2020-12-04] MEDS ORDERED: AMLODIPINE 10 MG TAB PO SCH (09:00)
[2020-12-04] MEDS ORDERED: LOSARTAN POTASSIUM 50 MG TABLET PO SCH (09:00)
[2020-12-04] MEDS ORDERED: LETROZOLE 2.5 MG TAB PO SCH (09:00)
[2020-12-04 09:01] VITALS: O2SAT 91
[2020-12-04 10:37] VITALS: BP 155/72
--- NOTE | 2020-12-04 21:10 | P.DS ---
Admission Date: 12/02/20 Discharge Date: 12/04/20 Disposition: ROUTINE DISCHARGE Discharge Condition: GOOD Reason for Admission: UTI, altered mental status Procedures: CXR (12/02): Emphysematous changes are present throughout the lungs. Focally prominent left mid lung opacity is noted, more conspicuous than on comparative studies. The heart is normal in size. Right axillary ewa dissection clips.Recommend followup CT chest for further evaluation. CT Head (12/02): No intracranial hemorrhage, hydrocephalus or extra-axial fluid collection.Significant brain atrophy pattern is stable.No areas of brain edema or evidence of midline shift. The paranasal sinuses and mastoids are clear. The calvarium is intact. Problem List Acute metabolic encephalopathy secondary to UTI, cystitis DM2 COPD HTN HLD Depression h/o breast cancer s/p mastectomy Brief History of Present Illness: 85 yo F, PMH: DM 2, HTN, depression, Parkinsons, R breast cancer s/p mastectomy who presents to ED with ~1-2 days of confusion, agitation, foul smelling urine. Patient is accompanied by the daughter who provides history. She says this is how the patient gets when she has had UTIs previously. In the last year she has had 2 other UTIs. Daughter otherwise denies patient complaining of any fevers/chills, no shortness of breath, no chest pain, no abdominal pain. No new rashes or lesions. Patient is currently pleasantly confused, she denies any current complaints/pain, denies dysuria. Daughter states over the past several months the patient has needed more help with most things - cooking, cleaning, taking care of herself. She is able to bathe herself. Mostly help due to parkinsons, mild tremor. Workup in the ED notable for no leukocytosis, lactic acidosis of 3.0, negative troponin, negative pro calcitonin, UA grossly positive for UTI. COVID negative. Hospital Course: Patient was treated IV Rocephin and gentle IV fluid hydration. She had improvement of her encephalopathy, remained afebrile, tolerated her diet, and reported no dysuria/pain/complaints. Urine culture grew fong-sensitive E. coli. PT evaluated the patient and she did well with a wheeled walker. She no longer had any agitation, but did remain with mild confusion. Daughter felt she was >50% back to her normal self. AAOx2. Discussed possibly continuing to monitor patient for more improvement vs discharging home. Daughter stated they are able to provide 24/7 care/supervision and now that the patient had improved, she was more manageable and was ok with being discharged home. The patient was discharged home with a prescription for Omnicef. She did not require any insulin during her hospitalization. The daughter was instructed to slowly increase her insulin at home as patient begins to eat more. Vital Signs/Physical Exam: Physical Exam: Gen: NAD, confused, pleasant, AAOx2 HEENT: normal conjunctiva, MMM CV: RRR, no edema Pulm: CTAB, no wheeze/rales Abd: soft, NTND Ext: no rash, no edema Neuro: moves all extremities Temp Pulse Resp BP Pulse Ox 97.3 F 88 20 155/72 H 92 12/04/20 08:00 12/04/20 08:43 12/04/20 08:00 12/04/20 10:36 12/04/20 08:00 Laboratory Data at Discharge: WBC 6.90 K/uL (4.3-10.9) 12/03/20 05:16 Hgb 11.2 g/dL (12.0-15.0) L 12/03/20 05:16 Hct 33.6 % (36.0-45.0) L 12/03/20 05:16 Plt Count 160 K/uL (152-406) 12/03/20 05:16 PT 12.4 SECONDS (9.5-12.5) 12/02/20 14:05 INR 1.08 12/02/20 14:05 Sodium 138 mmol/L (136-145) 12/04/20 05:04 Potassium 4.0 mmol/L (3.5-5.1) 12/04/20 05:04 BUN 7 mg/dL (7-18) 12/04/20 05:04 Creatinine 0.67 mg/dL (0.55-1.3) 12/04/20 05:04 Glucose 155 mg/dL (74-106) H 12/04/20 05:04 Magnesium 1.8 mg/dL (1.8-2.4) 12/04/20 05:04 Total Bilirubin 0.7 mg/dL (0.2-1.0) 12/03/20 05:16 AST 14 U/L (15-37) L 12/03/20 05:16 ALT 14 U/L (12-78) 12/03/20 05:16 Alkaline Phosphatase 73 U/L (45-117) 12/03/20 05:16 Home Medications: Insulin Detemir [Levemir*] 100 unit SQ BEDTIME 07/20/16 Carbidopa/Levodopa [Carbidopa-Levodopa 25-100 Tab] 25 mg PO QID 12/02/20 Duloxetine HCl [Cymbalta] 30 mg PO DAILY 12/02/20 Empagliflozin [Jardiance] 1 tab PO DAILY 12/02/20 Galantamine HBr [Galantamine ER] 12 mg PO BID 12/02/20 Losartan Potassium 100 mg PO DAILY 12/02/20 Metformin HCl 1,000 mg PO BID 12/02/20 Pantoprazole Sodium 1 tab PO DAILY 12/02/20 Amlodipine [Norvasc*] 10 mg PO DAILY 12/03/20 Atorvastatin Calcium [Lipitor*] 10 mg PO BEDTIME 12/03/20 Letrozole [Femara*] 2.5 mg PO DAILY 12/03/20 Cefdinir [Omnicef] 300 mg PO BID 10 Days #20 capsule 12/04/20 New Medications: Cefdinir [Omnicef] 300 mg PO BID 10 Days #20 capsule Physician Discharge Instructions: You were found to have a UTI due to e.coli which was causing your confusion. You are discharged with Omnicef prescription for 10 days (antibiotic). Please follow up with your PCP. You did not require much insulin when you were in the hospital. Please slowly increase your insulin when you get home, working back up to your usual dose, as discussed. Monitor your glucose levels daily. Discuss with your PCP and consider follow up with a Urologist regarding ongoing incontinence and UTIs. The chest x-ray obtained in the ER showed an incidental small left mid-lung opacity/lesion, that has been seen on prior imaging. Discuss with your PCP and consider a follow up CT chest in the near future. Diet: ADA Activity: Ad pam (with walker) Followup: Felix Thacker DO [Primary Care Provider] - Time spent managing pt's care (in minutes): 40
== END 2020-12-04 11:20 | disposition home or self-care (01) | DRG 689 ==
LOC: ER 12:17 → ERHOLD 16:24 → 2ND 19:48
PROVIDERS: ADMIT Hospitalist; ATTEND Hospitalist
DX: N39.0 Urinary tract infection, site not specified (principal); G93.41 Metabolic encephalopathy; K21.9 Gastro-esophageal reflux disease without esophagitis; I10 Essential (primary) hypertension; E78.5 Hyperlipidemia, unspecified; G20 Parkinson's disease; F32.9 Major depressive disorder, single episode, unspecified; E11.9 Type 2 diabetes mellitus without complications; J44.9 Chronic obstructive pulmonary disease, unspecified; B96.20 Unspecified Escherichia coli [E. coli] as the cause of diseases classified elsewhere; Z88.8 Allergy status to other drugs, medicaments and biological substances; Z85.3 Personal history of malignant neoplasm of breast; Z90.49 Acquired absence of other specified parts of digestive tract; Z90.710 Acquired absence of both cervix and uterus; Z99.81 Dependence on supplemental oxygen; Z90.11 Acquired absence of right breast and nipple; Z79.4 Long term (current) use of insulin; Z87.891 Personal history of nicotine dependence; Z79.899 Other long term (current) drug therapy; Z20.822 Contact with and (suspected) exposure to COVID-19; Z23 Encounter for immunization
CPT/HCPCS: 36415; 70450; 71045; 80048; 80053; 80076; 81003; 81015; 82947; 83605; 83735; 83880; 84145; 84484; 85025; 85610; 87040; 87077; 87086; 87088; 87186; 93005; 94760; 96365; 96367; 97116; 97161; 99285; J0692; J0696; J1650; J3475; J7030; J7050; U0003

== ENCOUNTER 2021-05-03 16:18 | Emergency (ER) | payer OTHER ==
--- OUTSIDE RECORDS SUMMARY | 2021-05-03 16:29 | XMS REPORT | Continuity of Care Document ---
:[address] [facility] [place], [place] t Address [address] [place] [address] Care Team Providers Name Role Phone Unavailable [...] - MOUTH [facility]oria TWICE A l DAY [facility] Losartan Losartan Yes Felix [address] Potassium Potassium [facility] Letrozole Letrozole Yes Felix TAKE [address] [facility]acker TABLET BY [facility] EVERY DAY l [facility] Ciprofloxac Ciprofloxac Yes Felix not [facility] in HCl in HCl [facility] defined [facility] Pantoprazol Pantoprazol Yes Felix TAKE [address] [facility] e Sodium e Sodium Thacker TABLET BY L [facility] - MOUTH Memoria EVERY DAY l [facility] Amlodipine Amlodipine Yes Felix TAKE [address] [facility] Besylate Besylate Thacker TABLET BY L [facility] - MOUTH Memoria EVERY DAY l [facility] Levemir Levemir Yes Felix not [facility] FlexTouch FlexTouch Thacker defined [facility] Procedures This patient has no known procedures. Encounters Start End Encounter Admission Attending Care Care Encounter Source Date/Time Date/Time Type Type Clinicians Facility Department ID 2021-04-06 2021-04-06 Outpatient [facility] [id number] [facility] 2021-03-04 2021-03-04 Outpatient [facility] [id number] [facility] 2021-02-11 2021-02-11 Outpatient [facility] [id number] [facility] 2021-02-11 2021-02-11 Outpatient [facility] [id number] [facility] 2021-02-10 2021-02-10 Outpatient [facility] [id number] [facility] 2021-02-07 2021-02-07 Inpatient [facility] [id number] [facility] 15:27:00 11:41:00 2021-02-07 2021-02-07 Outpatient [facility] [id number] [facility] 08:36:00 08:36:00 2021-02-04 2021-02-04 Outpatient [facility] [id number] [facility] 2021-01-05 2021-01-05 Out[facility] [id number] [facility] 2020-12-21 2020-12-21 Out[facility] [id number] [facility] 2020-12-02 2020-12-02 Out[facility] [id number] [facility] 2020-12-01 2020-12-01 Out[facility] [id number] [facility] 2020-09-12 2020-09-12 Out[facility] [id number] [facility] 2020-08-30 2020-08-30 Out[facility] [id number] [facility] 2020-08-19 2020-08-19 Out[facility] [id number] [facility] 2020-08-16 2020-08-16 Out[facility] [id number] [facility] 2020-07-29 2020-07-29 Outpatient [facility] [id number] [facility] 2020-06-22 2020-06-22 Outpatient Ike Mai [id number] [facility] 11:00:00 11:00:00 [facility] 2020-01-12 2020-01-12 Outpatient Ike Mai [id number] [facility] 09:30:00 09:30:00 [facility] Results This patient has no known results.
[2021-05-03] MEDS ORDERED: ACETAMINOPHEN 325 MG TABLET ONE (18:56)
[2021-05-03] MEDS ORDERED: IBUPROFEN 400 MG TAB ONE (18:56)
--- NOTE | 2021-05-03 19:37 | RAD REPORT ---
EXAM DESCRIPTION: CT - Spine Lumbar Wo Con - 05/03/2021 7:16 pm CLINICAL HISTORY: fall;Pain COMPARISON: None. TECHNIQUE: Thin section axial imaging of the lumbar spine was performed. Sagittal and coronal recon struction images were generated and reviewed. All CT scans are performed using dose optimization technique as appropriate and may include automated exposure control or mA/KV adjustment according to patient size. FINDINGS: No compression fracture or acute lumbar vertebral body finding. There is very slight anter ior subluxation of L4 on L5 secondary to facet degenerative change. No pathologic bone process seen. There is no paraspinal soft tissue mass. Patient does have very dense aortoiliac atherosclerotic calcifications. Significant flow restricting stenosis is present at the aortoiliac junction with continued stenoses seen in the bilateral common i liac and external iliac arteries. Central canal detail is inherently limited. No large disc herniation suspected. Foraminal disc bulge present at T12-L1 without significant stenosis seen. Foraminal and far lateral extraforaminal disc bulge is present on the right at L2-3. There is right f oraminal encroachment present. L3-4 circumferential disc bulge changes are present. There is facet degenerative change and ligamento us thickening, more so on the left. Central canal and right exit foramen show no significant stenosis . There is left foramen stenosis. L4-5 shows a prominent circumferential bulging of disc material most pronounced in the central canal and bilateral exit foramina. Partial foraminal stenosis is present. Advanced facet joint degenerative change present at L5-S1. IMPRESSION: Lumbar spine degenerative changes are present as detailed. No compression fracture or ac [place] finding identifiable.
--- NOTE | 2021-05-03 19:41 | RAD REPORT ---
EXAM DESCRIPTION: CT - CTHCSPWOC - 05/03/2021 7:17 pm CLINICAL HISTORY: PAIN, fall with head and neck pain COMPARISON: Head C Spine Mpr Wo Con dated 03/10/2019 TECHNIQUE: Axial 5 mm thick images of the head were obtained. Axial 2 mm thick images of the cervic al spine were obtained with sagittal and coronal reconstruction images generated and reviewed. All CT scans are performed using dose optimization technique as appropriate and may include automated exposure control or mA/KV adjustment according to patient size. FINDINGS: No intracranial hemorrhage, mass, edema or acute intracranial finding. No suspicion for ac [place] infarction. No cortical edema or sulcal effacement. Patient has advanced atrophy and chronic isch emic change. Ventricles are in proportion to the volume loss. Mastoid air cells and paranasal sinuses are clear. No globe or orbit abnormality seen. Cervical bodies are normal in height. There is straightening of the usual cervical lordosis. C5-6 and C6-7 disc space narrowing and endplate spurring changes are present. No fracture or acute bony abnor mality. Central canal detail is inherently limited. No paraspinal mass or hematoma. Limited imaging into each upper lung field shows prominent subpleural fibrotic change. The spiculated 12 mm mass is present in the posterior left upper lung field abutting the fissure posteriorly. IMPRESSION: Advanced atrophy and chronic ischemic changes are present similar to 2019. No acute intr acranial finding. Prominent cervical spine degenerative change present C5-6 and C6-7. No acute finding. Degenerative ch nelida has progressed slightly from 2019. A spiculated 12 millimeter mass in the posterior left lobe is only partially imaged on this study. M ass may be larger and needs follow-up CT chest imaging. This could be done as an outpatient.
--- NOTE | 2021-05-03 19:48 | RAD REPORT ---
EXAM DESCRIPTION: CT - Pelvis Wo Cont - 05/03/2021 7:17 pm CLINICAL HISTORY: PAIN, fall, pelvic pain COMPARISON: No comparisons TECHNIQUE: Axial noncontrast 2 millimeter thick images of the pelvis were obtained. Sagittal and cor onal reformatted images were generated and reviewed. All CT scans are performed using dose optimization technique as appropriate and may include automate d exposure control or mA/KV adjustment according to patient size. FINDINGS: Advanced facet joint degenerative change present at L4-5 with circumferential bulging of d isc material in the central canal and exit foramina. Foraminal stenosis suspected on the left. No sig nificant findings at the L5-S1 disc level. Patient has very dense arterial tree calcifications. There is likely significant stenosis in the prox imal portion of the left common iliac artery. Stenosis at the left common iliac -external iliac junct ion also suspected. No fracture or acute bone finding in either proximal femur. Scattered symmetric subcortical degenerat rui cystic pattern in each femoral head without AVN. Mild spurring of each acetabular rim. No joint e ffusion. SI joint degenerative changes are present [id number] in severity. No pathologic bone p rocess. There is a transverse fracture through the superior aspect of the S1 body with increased trabecular d ensity extending into each sacral ala. IMPRESSION: Sacral insufficiency fracture is present involving the S1 body and the sacral ala. No other fracture changes seen.
--- NOTE | 2021-05-03 21:03 | EDPHYS ---
Physician Documentation [facility] Name: Martha Tobar Age: 85 yrs Sex: Female : 1935 Arrival Date: 05/03/2021 Time: 16:25 Bed 5 Private MD: BEATRICE Physician Sin Martinez HPI: 05/03 17:35 This 85 yrs old Female presents to ER via Wheelchair with complaints of Fall cp Injury. 17:35 Details of fall: The patient fell from an upright position, while standing, while using cp walker. Onset: The symptoms/episode began/occurred today. Patient's daughter translating and reports patient lost her balance while using using walker. Patient fell backward onto buttocks and hit back of head. No reported LOC. Historical: - Allergies: 16:32 No Known Allergies; sv - PMHx: 16:32 breast cancer; GERD; Diabetes - IDDM; Depression; Hypertension; sv - Immunization history:: Client reports receiving the 2nd dose of the Covid vaccine, Client reports receiving the 1st dose of the Covid vaccine. - Social history:: Smoking status: Patient denies any tobacco usage or history of. - Immunization history: Last tetanus immunization: unknown. ROS: 17:40 Back: Positive for pain at rest, pain with movement, of the sacrum. cp 17:40 Eyes: Negative for injury, pain, redness, and discharge. cp 17:40 Constitutional: Negative for body aches, chills, fever, poor PO intake. 17:40 Cardiovascular: Negative for chest pain, palpitations. 17:40 Respiratory: Negative for cough, shortness of breath, wheezing. 17:40 Abdomen/GI: Negative for abdominal pain, nausea, vomiting, and diarrhea. 17:40 Neuro: Positive for headache, Negative for loss of consciousness, syncope. 17:40 All other systems are negative. Exam: 17:45 Constitutional: The patient appears in no acute distress, alert, awake, cp non-diaphoretic, non-toxic, well developed, well nourished, uncomfortable. 17:45 Head/face: Noted is tenderness, that is mild, of the left occipital area, left base of the skull, right occipital area and right base of the skull. 17:45 Eyes: Periorbital structures: appear normal, Pupils: equal, round, and reactive to light and accomodation, Extraocular movements: intact throughout, Conjunctiva: normal, no exudate, no injection, Sclera: no appreciated abnormality, Lids and lashes: appear normal, bilaterally. 17:45 ENT: External ear(s): are unremarkable, Nose: is normal, Mouth: Lips: moist, Oral mucosa: moist, Posterior pharynx: Airway: no evidence of obstruction, patent. 17:45 Neck: C-spine: vertebral tenderness, is not appreciated, crepitus, is not appreciated, ROM/movement: pain, is not appreciated, limited range of motion, is not appreciated. 17:45 Chest/axilla: Inspection: normal, Palpation: is normal, no crepitus, no tenderness. 17:45 Cardiovascular: Rate: normal, Rhythm: regular. 17:45 Respiratory: the patient does not display signs of respiratory distress, Respirations: normal, no use of accessory muscles, no retractions, labored breathing, is not present. 17:45 Abdomen/GI: Inspection: abdomen appears normal, Palpation: abdomen is soft and non-tender, in all quadrants. 17:45 Back: pain, that is moderate, of the sacrum, ROM is painful, with all movement. 17:45 Musculoskeletal/extremity: Exam is negative for decreased range of motion, deformity, injury. 17:45 Neuro: Orientation: no acute changes, per family, Mentation: no acute changes, per family, Motor: moves all fours, strength is normal, Sensation: no obvious gross deficits. Vital Signs: 16:32 BP 143 / 67; Pulse 78; Resp 16; Temp 98; Pulse Ox 98% ; Weight 60.78 kg; Height 4 ft. sv 11 in. (149.86 cm); 19:00 BP 154 / 77; Pulse 90; Resp 16; Pulse Ox 95% ; bp 19:41 BP 155 / 64; Pulse 85; Resp 15 S; Pulse Ox 96% on R/A; ad5 21:06 BP 140 / 58; Pulse 84; Resp 17; Pulse Ox 95% ; ea 16:32 Body Mass Index 27.06 (60.78 kg, 149.86 cm) sv Oumou Coma Score: 19:02 Eye Response: spontaneous(4). Verbal Response: oriented(5). Motor Response: obeys bp commands(6). Total: 15. Trauma Score (Adult): 19:02 Eye Response: spontaneous(1); Verbal Response: oriented(1); Motor Response: obeys bp commands(2); Systolic BP: > 89 mm Hg(4); Respiratory Rate: 10 to 29 per min(4); Oumou Score: 15; Trauma Score: 12 MDM: 17:22 Patient medically screened. [facility] 20:50 Physician consultation: Amador Mir MD regarding patient's condition, results of CT, recommends pain control and discharge to home as fracture is non-surgical. 21:00 Data reviewed: vital signs, nurses notes, radiologic studies, CT scan, and as a result, cp I will discharge patient. 21:00 Counseling: I had a detailed discussion with the patient and/or guardian regarding: the cp historical points, exam findings, and any diagnostic results supporting the discharge/admit diagnosis, radiology results, the need for outpatient follow up, a family practitioner, to return to the emergency department if symptoms worsen or persist or if there are any questions or concerns that arise at home. Response to treatment: the patient's symptoms have markedly improved after treatment, VSS. Pain markedly improved. 05/03 17:30 Order name: CT Lumbar Spine Wo Con; Complete Time: 20:14 05/03 20:16 Interpretation: Report reviewed. 05/03 17:30 Order name: CT Head C Spine; Complete Time: 20:14 05/03 20:16 Interpretation: Reviewed report. 05/03 17:30 Order name: CT Pelvis wo Cont; Complete Time: 20:14 05/03 20:22 Order name: Misc. Order: ambulate patient; Complete Time: 20:42 cp Administered Medications: 18:00 Drug: Ibuprofen 800 mg Route: PO; bp 19:40 Follow up: Response: No adverse reaction ad5 18:00 Drug: Tylenol 650 mg Route: PO; bp 19:40 Follow up: Response: No adverse reaction ad5 18:00 Drug: traMADol 25 mg Route: PO; bp 19:40 Follow up: Response: No adverse reaction; Pain is decreased; RASS: Alert and Calm (0) ad5 Disposition: 21:00 Chart complete. 05/04 09:35 Co-signature as Attending Physician, Sin Martinez MD I agree with the assessment and [facility] plan of care. Disposition Summary: 05/03/21 21:01 Discharge Ordered Location: Home cp Problem: new cp Symptoms: have improved cp Condition: Stable cp Diagnosis - Fall on same level, unspecified cp - Fracture of sacrum - from fall cp - Contusion of unspecified part of head cp Followup: cp - With: Private Physician - When: 2 - 3 days - Reason: Recheck today's complaints Discharge Instructions: - Discharge Summary Sheet cp - Head Injury, Adult cp - Simple Pelvic Fracture, Adult cp - Fall Prevention in the Home, Adult cp Forms: - Medication Reconciliation Form cp - Thank You Letter cp - Antibiotic Education cp - Prescription Opioid Use cp Prescriptions: - Tramadol 50 mg Oral Tablet - take 1 tablet by ORAL route every 8 hours As needed as needed; 20 tablet; cp Refills: 0, Product Selection Permitted Signatures: Dispatcher [employer] EDKY Brianna Rogers RN RN sv Anderson, Corey, MD MD cha Page, Corey, PA PA cp Violetta Cabral RN Davy Wyman ea, RN RN bp Davidson, Andrea ad5 Corrections: (The following items were deleted from the chart) 05/03 17:32 17:08 Sacrum And Coccyx+RAD.RAD.BRZ ordered. EDKY EDMS 23:51 05/02 17:45 Constitutional: The patient appears in no acute distress, alert, awake, cp non-diaphoretic, non-toxic, well developed, well nourished, uncomfortable, cp 05/03 23:05/02 17:45 Head/face: Noted is tenderness, that is mild, of the left occipital area, cp left base of the skull, right occipital area and right base of the skull, cp 05/03 23:05/02 17:45 Eyes: Periorbital structures: appear normal, Pupils: equal, round, and cp reactive to light and accomodation, Extraocular movements: intact throughout, Conjunctiva: normal, no exudate, no injection, Sclera: no appreciated abnormality, Lids and lashes: appear normal, bilaterally, cp 05/03 23:05/02 17:45 ENT: External ear(s): are unremarkable, Nose: is normal, Mouth: Lips: cp moist, Oral mucosa: moist, Posterior pharynx: Airway: no evidence of obstruction, patent, cp 05/03 23:05/02 17:45 Neck: C-spine: vertebral tenderness, is not appreciated, crepitus, is not cp appreciated, ROM/movement: pain, is not appreciated, limited range of motion, is not appreciated, cp 05/03 23:05/02 17:45 Chest/axilla: Inspection: normal, Palpation: is normal, no crepitus, no cp tenderness, cp 05/03 23:05/02 17:45 Cardiovascular: Rate: normal, Rhythm: regular, cp cp 05/03 23:05/02 17:45 Respiratory: the patient does not display signs of respiratory distress, cp Respirations: normal, no use of accessory muscles, no retractions, labored breathing, is not present, cp 05/03 23:05/02 17:45 Abdomen/GI: Inspection: abdomen appears normal, Palpation: abdomen is soft cp and non-tender, in all quadrants, cp 05/03 23:05/02 17:45 Back: pain, that is moderate, of the sacrum, ROM is painful, with all cp movement, cp 05/03 23:05/02 17:45 Musculoskeletal/extremity: Exam is negative for decreased range of motion, cp deformity, injury, cp 05/03 23:05/02 17:45 Neuro: Orientation: no acute changes, per family, Mentation: no acute cp changes, per family, Motor: moves all fours, strength is normal, Sensation: no obvious gross deficits, cp
--- NOTE | 2021-05-03 21:03 | ER ---
Nurse's Notes [facility] Name: Martha Tobar Age: 85 yrs Sex: Female : 1935 Arrival Date: 05/03/2021 Time: 16:25 Bed 5 Private MD: Diagnosis: Fall on same level, unspecified;Fracture of sacrum-from fall;Contusion of unspecified part of head Presentation: 05/03 16:31 Chief complaint: Patient states: s/p fall onto her buttocks, c/o pain. Denies hitting sv her head or LOC. Care prior to arrival: None. Mechanism of Injury: Fall from standing position. Trauma event details: Injury occurred in the [facility], Injury occurred: at home. Injury occurred: May 03, 2021. 16:31 Acuity: RIGOBERTO 4 sv 16:31 Method Of Arrival: Wheelchair sv 16:32 Coronavirus screen: At this time, unable to obtain information related to travel sv outside the [place] Ebola Screen: No symptoms or risks identified at this time. Risk Assessment: Do you want to hurt yourself or someone else? Patient reports no desire to harm self or others. Onset of symptoms was May 03, 2021. 16:32 Initial Sepsis Screen: Does the patient meet any 2 criteria? Yes Does the patient have sv a suspected source of infection? No. Patient's initial sepsis screen is negative. Triage Assessment: 16:33 General: Appears in no apparent distress. comfortable, Behavior is calm, cooperative, sv appropriate for age. Pain: Complains of pain in buttocks. Neuro: Level of Consciousness is awake, alert, obeys commands. Respiratory: Respiratory effort is even, unlabored. Trauma Activation: Not Applicable Physician: ED Physician; Name: ; Notified At: ; Arrived At: Physician: General Surgeon; Name: ; Notified At: ; Arrived At: Physician: Radiology; Name: ; Notified At: ; Arrived At: Physician: Respiratory; Name: ; Notified At: ; Arrived At: Physician: Lab; Name: ; Notified At: ; Arrived At: Historical: - Allergies: 16:32 No Known Allergies; sv - PMHx: 16:32 breast cancer; GERD; Diabetes - IDDM; Depression; Hypertension; sv - Immunization history:: Client reports receiving the 2nd dose of the Covid vaccine, Client reports receiving the 1st dose of the Covid vaccine. - Social history:: Smoking status: Patient denies any tobacco usage or history of. - Immunization history: Last tetanus immunization: unknown. Screenin:24 Abuse screen: Denies threats or abuse. Denies injuries from another. Tuberculosis bp screening: No symptoms or risk factors identified. 20:24 Nutritional screening: No deficits noted. ea Primary Survey: 16:35 NO uncontrolled hemorrhage observed. A: The patient is alert. Airway: patent. bp Breathing/Chest: Respiratory pattern: regular, Respiratory effort: spontaneous, unlabored. Circulation: Skin color: pink. Disability Alert. Exposure/Environment: All clothing and personal items were removed. Forensic evidence collection is not deemed to be indicated at this time. Items placed in patient belonging bag. There is no evidence of uncontrolled external bleeding. No obvious injuries are noted at this time. 20:23 Reassessment Breathing/Chest Respiratory pattern Regular Respiratory effort Spontaneous ea Unlabored. Assessment: 16:35 General: SEE TRIAGE NOTE. bp 17:07 Reassessment: Received VO for xray per Dr Martinez. sv 18:00 Reassessment: No changes from previously documented assessment. Patient and/or family bp updated on plan of care and expected duration. Pain level reassessed. Patient is alert, oriented x 3, equal unlabored respirations, skin warm/dry/pink. 19:02 Reassessment: PT TO CT. bp 19:40 Reassessment: Patient appears in no apparent distress at this time. Patient and/or ad5 family updated on plan of care and expected duration. Pain level reassessed. Patient is alert, oriented x 3, equal unlabored respirations, skin warm/dry/pink. Patient states feeling better. 20:42 Reassessment: Pt ambulated with this RN with walker. Ambulates with slow, but steady ad5 gait. Pt reports improvement in s/s. Back to room 5 in ED, positioned for comfort in stretcher. Family remains at bedside. 21:09 Reassessment: Patient and/or family updated on plan of care and expected duration. Pain ea level reassessed. Patient is alert, oriented x 3, equal unlabored respirations, skin warm/dry/pink. Discharge instruction given to patient verbalized the understanding of instruction. Vital Signs: 16:32 BP 143 / 67; Pulse 78; Resp 16; Temp 98; Pulse Ox 98% ; Weight 60.78 kg; Height 4 ft. sv 11 in. (149.86 cm); 19:00 BP 154 / 77; Pulse 90; Resp 16; Pulse Ox 95% ; bp 19:41 BP 155 / 64; Pulse 85; Resp 15 S; Pulse Ox 96% on R/A; ad5 21:06 BP 140 / 58; Pulse 84; Resp 17; Pulse Ox 95% ; ea 16:32 Body Mass Index 27.06 (60.78 kg, 149.86 cm) sv [place] Coma Score: 19:02 Eye Response: spontaneous(4). Verbal Response: oriented(5). Motor Response: obeys bp commands(6). Total: 15. Trauma Score (Adult): 19:02 Eye Response: spontaneous(1); Verbal Response: oriented(1); Motor Response: obeys bp commands(2); Systolic BP: > 89 mm Hg(4); Respiratory Rate: 10 to 29 per min(4); [place] Score: 15; Trauma Score: 12 ED Course: 16:25 Patient arrived in ED. wm 16:32 Triage completed. sv 16:32 Arm band placed on. sv 16:35 Patient maintains SpO2 saturation greater than 95% on room air. bp 17:22 Sin Boyer PA is PHCP. cp 17:22 Sin Martinez MD is Attending Physician. cp 17:31 Davy Duarte, TAMY is Primary Nurse. bp 18:24 Patient has correct armband on for positive identification. Bed in low position. Call bp light in reach. Side rails up X2. Adult w/ patient. 19:15 Primary Nurse role handed off by Davy Duarte, RN mw2 19:16 CT Lumbar Spine Wo Con In Process Unspecified. EDMS 19:16 CT Head C Spine In Process Unspecified. EDMS 19:16 CT Pelvis wo Cont In Process Unspecified. EDMS 19:40 Boyd Rowe is Primary Nurse. ad5 20:23 No provider procedures requiring assistance completed. ea 20:24 Thermoregulation: warm blanket given to patient. ea 21:04 Sin Martinez MD is Attending Physician. cp 21:09 Patient did not have IV access during this emergency room visit. ea Administered Medications: 18:00 Drug: Ibuprofen 800 mg Route: PO; bp 19:40 Follow up: Response: No adverse reaction ad5 18:00 Drug: Tylenol 650 mg Route: PO; bp 19:40 Follow up: Response: No adverse reaction ad5 18:00 Drug: traMADol 25 mg Route: PO; bp 19:40 Follow up: Response: No adverse reaction; Pain is decreased; RASS: Alert and Calm (0) ad5 Output: 19:02 Urine: 0ml; Total: 0ml. bp Outcome: 21:01 Discharge ordered by . cherrie 21:09 Patient's length of stay was not longer than 2 hours. ea 21: Condition: stable ea 21: Discharged to home via wheelchair, with family. ea 21: Discharge instructions given to patient, family, Instructed on discharge instructions, follow up and referral plans. medication usage, Demonstrated understanding of instructions, follow-up care, medications, Prescriptions given X 1. 21:10 Patient left the ED. ea Signatures: Dispatcher [employer] EDMS Brianna Rogers RN RN sv Page, Corey, PA PA cp Antunez, Elena, RN RN ea Peltier, Brian, RN RN Chad Li mw2 Boyd Rowe ad5 Yumiko Barth Corrections: (The following items were deleted from the chart) 18:25 18:24 Patient maintains SpO2 saturation greater than 95% on room air. bp bp 19:45 19:41 Pulse 85bpm; Resp 15bpm; Spontaneous; Pulse Ox 96% RA; ad5 ad5
[2021-05-03 21:29] VITALS: TEMP 98
[2021-05-03 21:33] VITALS: BP 140/58; O2SAT 95
== END 2021-05-03 21:10 | disposition home or self-care (01) ==
LOC: ER 16:18
DX: S32.10XA Unspecified fracture of sacrum, initial encounter for closed fracture (principal); W18.30XA Fall on same level, unspecified, initial encounter; Z85.3 Personal history of malignant neoplasm of breast; I10 Essential (primary) hypertension
CPT/HCPCS: 70450; 72125; 72131; 72192; 99284

== ENCOUNTER 2021-05-13 16:05 | Emergency (ER) | payer OTHER ==
--- OUTSIDE RECORDS SUMMARY | 2021-05-13 16:08 | XMS REPORT | Continuity of Care Document ---
:1935 Author Organization [facility] t Address [address] [place] [address] Care Team Providers Name Role Phone Unavailable [...] MOUTH [facility] A [facility] Carbidopa-L Carbidopa-L Yes Felix TAKE [address] [facility] evodopa evodopa Thacker TABLET BY Mauricio es - MOUTH Memoria TWICE A l DAY [facility] Losartan Losartan Yes Felix [address] Potassium Potassium [facility]acker [facility] Letrozole Letrozole Yes Felix TAKE [address] Thacker TABLET BY [facility] EVERY DAY l [facility] Ciprofloxac Ciprofloxac Yes Felix not [facility] in HCl in HCl Thacker defined [facility] Pantoprazol Pantoprazol Yes Felix TAKE [address] [facility] e Sodium e Sodium Thacker TABLET BY L ukes - MOUTH Memoria EVERY DAY l [facility] Amlodipine Amlodipine Yes Felix TAKE [address] [facility] Besylate Besylate Thacker TABLET BY L ukes - MOUTH Memoria EVERY DAY l [facility] Levemir Levemir Yes Felix not [facility] FlexTouch FlexTouch Thacker defined [facility] Procedures This patient has no known procedures. Encounters Start End Encounter Admission Attending Care Care Encounter Source Date/Time Date/Time Type Type Clinicians Facility Department ID 2021-05-04 2021-05-04 Outpatient [facility] [id number] 2021-04-06 2021-04-06 [facility] [id number] [facility] 2021-03-04 2021-03-04 Out[facility] [id number] [facility] 2021-02-11 2021-02-11 Out[facility] [id number] [facility] 2021-02-11 2021-02-11 Out[facility] [id number] [facility] 2021-02-10 2021-02-10 Outpatient [facility] [id number] [facility] 2021-02-07 2021-02-07 Inpatient E [facility] [id number] [facility] 15:27:00 11:41:00 2021-02-07 2021-02-07 Outpatient [facility] [id number] [facility] 08:36:00 08:36:00 2021-02-04 2021-02-04 Outpatient [facility] [id number] [facility] 2021-01-05 2021-01-05 Outpatient [facility] [id number] [facility] 2020-12-21 2020-12-21 Outpatient [facility] [id number] [facility] 2020-12-02 2020-12-02 Outpatient [facility] [id number] [facility] 2020-12-01 2020-12-01 Outpatient [facility] [id number] [facility] 2020-09-12 2020-09-12 Outpatient [facility] [id number] [facility] 2020-08-30 2020-08-30 Outpatient [facility] [id number] [facility] 2020-08-19 2020-08-19 Outpatient [facility] [id number] [facility] 2020-08-16 2020-08-16 Outpatient [facility] [id number] [facility] 2020-07-29 2020-07-29 [facility] [id number] [facility] 2020-06-22 2020-06-22 Outpatient Ike Mai [id number] 11:00:00 11:00:00 t [employer] s - [employer] 2020-01-12 2020-01-12 Outpatient Ike Mai [id number] [facility] [address] 09:30:00 09:30:00 [facility] ent Clinics Results This patient has no known results.
--- NOTE | 2021-05-13 17:36 | RAD REPORT ---
EXAM DESCRIPTION: US - Extremity Venous Uni Ltd - 05/13/2021 5:29 pm CLINICAL HISTORY: PAIN Leg swelling and edema. COMPARISON: No comparisons FINDINGS: Left lower extremity venous system was interrogated with Doppler technique. Normal flow, c ompressibility and augmentation was noted. There is no DVT present. IMPRESSION: No evidence of left lower extremity deep venous thrombosis.
[2021-05-13 18:13] LABS: Absolute Lymphocytes (CBC) 1.9 K/uL (0.7-4.9); Basophils % 0.9 % (0-1.3); Hematocrit 35.6 % (36.0-45.0); Lymphocytes % 23.3 % (15.3-44.8); MPV 9.1 fL (7.6-11.3); RBC Red Blood Cell Count 4.37 M/uL (3.86-4.86)
[2021-05-13 18:27] LABS: Potassium 5.1 mmol/L (3.5-5.1)
[2021-05-13 18:27] LABS: Urine Blood Negative (Negative); Urine Glucose Negative (Negative); Urine Protein Negative (Negative); Urine Specific Gravity 1.015 (1.005-1.030)
--- NOTE | 2021-05-13 18:27 | RAD REPORT ---
EXAM DESCRIPTION: RAD - Tib Fib Left - 05/13/2021 6:06 pm CLINICAL HISTORY: PAIN COMPARISON: No comparisons FINDINGS: No acute fracture is seen. No dislocation evident. Moderate atherosclerosis.
[2021-05-13 19:10] LABS: Urine Bacteria >50 /HPF (<20)
--- NOTE | 2021-05-13 19:27 | ER ---
Nurse's Notes [facility] Name: Martha Tobar Age: 86 yrs Sex: Female : 1935 Arrival Date: 05/13/2021 Time: 16:09 Bed 16 Private MD: Felix Thacker Diagnosis: Pain in left lower leg;UTI/ Urinary tract infection, site not specified Presentation: 05/13 16:16 Chief complaint: Patient states: Calf area pain to L leg for 1 day. Tramadol helped. ll1 Came to get it checked. Had a fall last week that broke her tailbone. No falls this week. Coronavirus screen: Client denies travel out of the [place] in the last 14 days. At this time, the client does not indicate any symptoms associated with coronavirus-19. Ebola Screen: Patient denies travel to an Ebola-affected area in the 21 days before illness onset. Initial Sepsis Screen: Does the patient meet any 2 criteria? No. Patient's initial sepsis screen is negative. Does the patient have a suspected source of infection? No. Patient's initial sepsis screen is negative. Risk Assessment: Do you want to hurt yourself or someone else? Patient reports no desire to harm self or others. Onset of symptoms was May 13, 2021. 16:16 Method Of Arrival: Wheelchair ll1 16:16 Acuity: RIGOBERTO 3 ll1 Historical: - Allergies: 16:18 No Known Allergies; ll1 - PMHx: 16:18 breast cancer; Diabetes - IDDM; Depression; GERD; Hypertension; ll1 - Immunization history:: Client reports receiving the 2nd dose of the Covid vaccine, Flu vaccine is up to date. - Social history:: Smoking status: Patient/guardian denies using tobacco, the patient reports quitting approximately 15 years ago. Screenin:10 Abuse screen: Denies threats or abuse. Denies injuries from another. Nutritional zb screening: No deficits noted. Tuberculosis screening: No symptoms or risk factors identified. Fall Risk None identified. Assessment: 17:28 Reassessment: ECP at bedside discussing care with patient. zb 18:07 General: Appears uncomfortable, Behavior is calm. Pain: Unable to use pain scale. Does zb not appear to understand pain scale. Neuro: Level of Consciousness is awake, alert, Oriented to person, Moves all extremities. Cardiovascular: Patient's skin is warm and dry. Respiratory: Airway is patent Respiratory effort is even, unlabored, Respiratory pattern is regular, symmetrical. GI: No deficits noted. Derm: Skin is intact, is fragile, is thin, with poor turgor. Musculoskeletal: Parent/caregiver report the patient having pain in left leg. 19:01 Reassessment: Patient appears in no apparent distress at this time. Patient and/or zb family updated on plan of care and expected duration. Pain level reassessed. Patient is alert, oriented x 3, equal unlabored respirations, skin warm/dry/pink. family at bedside. Vital Signs: 16:16 BP 147 / 70; Pulse 74; Resp 17; Temp 97.3; Pulse Ox 98% ; Weight 59.87 kg; Height 4 ft. ll1 11 in. (149.86 cm); Pain 3/10; 19:01 Pulse 66; Resp 16; Pulse Ox 100% on R/A; zb 16:16 Body Mass Index 26.66 (59.87 kg, 149.86 cm) ll1 ED Course: 16:09 Patient arrived in ED. mr 16:09 Felix Thacker DO is Private Physician. mr 16:18 Triage completed. ll1 16:18 Arm band placed on. ll1 16:32 [facility]C [facility] kb 16:32 Yon Bush MD is Attending Physician. kb 17:01 Jessica Ledezma, TAMY is Primary Nurse. zb 17:29 US Extremity Venous Unilateral Ltd In Process Unspecified. EDMS 18:06 Tib Fib Left XRAY In Process Unspecified. EDMS 18:10 Patient has correct armband on for positive identification. Pulse ox on. NIBP on. Door zb closed. Noise minimized. 18:10 No provider procedures requiring assistance completed. Initial lab(s) drawn, by , janay sent to lab. Inserted saline lock: 20 gauge in left antecubital area, using aseptic technique. Blood collected. 18:20 Straight cath inserted, using sterile technique, Specimen obtained. 15Fr Returned rody dh3 urine. Patient tolerated well. 18:30 Urine Microscopic Only Sent. dh3 19:25 Felix Thacker DO is Referral Physician. kb Administered Medications: 19:17 Drug: Rocephin (cefTRIAXone) 1 grams Route: IV; Rate: calculated rate; Site: left zb antecubital; Outcome: 19:26 Discharge ordered by MD. norman 20:04 Patient left the ED. em Signatures: Dispatcher [employer] Laura Ruiz, SILVER DETECTIVE H[employer]IC[employer] SQUAD-Jane Schaefer mr KrishnaHayden, RN RN Kimber Tovar [facility] Charo Bell RN RN [facility] Jessica Ledezma RN RN zb Corrections: (The following items were deleted from the chart) 19:18 18:07 Neuro: Level of Consciousness is awake, alert, obeys commands, Oriented to zb person, place, time, situation, zb
--- NOTE | 2021-05-13 19:27 | EDPHYS ---
Physician Documentation [facility] Name: Martha Tobar Age: 86 yrs Sex: Female : 1935 Arrival Date: 05/13/2021 Time: 16:09 Bed 16 Private MD: [facility] ED Physician Yon Bush HPI: 05/13 19:23 This 86 yrs old Female presents to ER via Wheelchair with complaints of Leg kb Pain. 19:23 The patient presents with pain, that is acute. The complaints affect the left calf. kb Context: The problem was sustained at home, resulted from an unknown cause, Problem is a result from a previous injury: No. Onset: The symptoms/episode began/occurred 3 day(s) ago. Modifying factors: The symptoms are alleviated by nothing. the symptoms are aggravated by nothing. Associated signs and symptoms: Pertinent positives: calf tenderness, Pertinent negatives fever, nausea, numbness, rash, swelling, tingling, vomiting, warmth, weakness. Treatment prior to arrival includes: no previous treatment. Severity of symptoms: At their worst the symptoms were mild, moderate, in the emergency department the symptoms have improved. The patient has not experienced similar symptoms in the past. The patient has not recently seen a physician. Family states pt has been complaining of left calf pain for a few days. States she massaged it and it was feeling better, but she is still having the pain. Also reports pt has a history of dementia, but has seemed more confused at times so she believes pt has a UTI. . Historical: - Allergies: 16:18 No Known Allergies; ll1 - PMHx: 16:18 breast cancer; Diabetes - IDDM; Depression; GERD; Hypertension; ll1 - Immunization history:: Client reports receiving the 2nd dose of the Covid vaccine, Flu vaccine is up to date. - Social history:: Smoking status: Patient/guardian denies using tobacco, the patient reports quitting approximately 15 years ago. ROS: 19:23 Constitutional: Negative for fever, chills, and weight loss. kb 19:23 MS/extremity: Positive for pain, of the left calf. 19:23 Neuro: Positive for increased confusion at times. 19:23 All other systems are negative. Exam: 19:22 Constitutional: This is a well developed, well nourished patient who is awake, alert, kb and in no acute distress. ENT: Moist Mucous membranes Cardiovascular: Regular rate and rhythm with a normal S1 and S2. No gallops, murmurs, or rubs. No pulse deficits. Respiratory: Respirations even and unlabored. No increased work of breathing, no retractions or nasal flaring. Abdomen/GI: Soft, non-tender. No distention Skin: Warm, dry with normal turgor. Normal color. MS/ Extremity: Pulses equal, no cyanosis. Neurovascular intact. Full, normal range of motion. Psych: Awake, alert, with orientation to person, place and time. Behavior, mood, and affect are within normal limits. 19:22 Neuro: Exam negative for acute changes. Vital Signs: 16:16 BP 147 / 70; Pulse 74; Resp 17; Temp 97.3; Pulse Ox 98% ; Weight 59.87 kg; Height 4 ft. ll1 11 in. (149.86 cm); Pain 3/10; 19:01 Pulse 66; Resp 16; Pulse Ox 100% on R/A; zb 16:16 Body Mass Index 26.66 (59.87 kg, 149.86 cm) ll1 MDM: 16:32 Patient medically screened. kb 19:11 Data reviewed: vital signs, nurses notes. Data interpreted: Pulse oximetry: on room air kb is 100 %. Interpretation: normal. Counseling: I had a detailed discussion with the patient and/or guardian regarding: the historical points, exam findings, and any diagnostic results supporting the discharge/admit diagnosis, lab results, radiology results, the need for outpatient follow up, a family practitioner, to return to the emergency department if symptoms worsen or persist or if there are any questions or concerns that arise at home. 05/13 17:29 Order name: CBC with Diff; Complete Time: 18:18 kb 05/13 17:29 Order name: Basic Metabolic Panel; Complete Time: 18:48 kb 05/13 16:33 Order name: US Extremity Venous Unilateral Ltd; Complete Time: 17:36 kb 05/13 17:29 Order name: Urine Microscopic Only; Complete Time: 19:11 kb 05/13 18:27 Order name: Urine Dipstick-Ancillary; Complete Time: 18:35 EDMS 05/13 19:11 Order name: Urine Culture EDMS 05/13 17:29 Order name: Tib Fib Left XRAY; Complete Time: 18:35 kb 05/13 17:29 Order name: Urine Dipstick-Ancillary (obtain specimen); Complete Time: 19:01 kb 05/13 17:29 Order name: IV Start; Complete Time: 18:07 kb Administered Medications: 19:17 Drug: Rocephin (cefTRIAXone) 1 grams Route: IV; Rate: calculated rate; Site: left zb antecubital; Disposition Summary: 05/13/21 19:26 Discharge Ordered Location: Home kb Condition: Stable kb Diagnosis - Pain in left lower leg kb - UTI/ Urinary tract infection, site not specified kb Followup: kb - With: Emergency Department - When: As needed - Reason: Worsening of condition Followup: kb - With: Felix Thacker, - When: 2 - 3 days - Reason: Recheck today's complaints, Continuance of care, Re-evaluation by your physician Discharge Instructions: - Discharge Summary Sheet kb - Urinary Tract Infection, Adult, [id number] kb Forms: - Medication Reconciliation Form kb - Thank You Letter kb - Antibiotic Education kb - Prescription Opioid Use kb Prescriptions: - Augmentin 875-125 mg Oral Tablet - take 1 tablet by ORAL route every 12 hours for 10 days; 20 tablet; Refills: 0, kb Product Selection Permitted Addendum: 05/15/2021 07:25 Co-signature as Attending Physician, Yon Bush MD I agree with the assessment and k dr plan of care. Signatures: Dispatcher [employer] Laura Ruiz, DELICIA-C DELICIA-Yon Delgado MD MD [facility] Charo Bell RN RN ll1 Jessica Ledezma RN RN zb
[2021-05-13] MEDS ORDERED: CEFTRIAXONE/SWI 1gm 1 GM/10 ML SYR ONE (19:36)
[2021-05-13 20:09] VITALS: BP 147/70; TEMP 97.3
[2021-05-13 20:11] VITALS: O2SAT 100
== END 2021-05-13 20:04 | disposition home or self-care (01) ==
LOC: ER 16:05
DX: M79.662 Pain in left lower leg (principal); N39.0 Urinary tract infection, site not specified; Z87.891 Personal history of nicotine dependence; E11.9 Type 2 diabetes mellitus without complications; F32.9 Major depressive disorder, single episode, unspecified; K21.9 Gastro-esophageal reflux disease without esophagitis; I10 Essential (primary) hypertension; Z85.3 Personal history of malignant neoplasm of breast; Z79.4 Long term (current) use of insulin
CPT/HCPCS: 87088; 85025; 87086; 80048; 36415; 73590; 93971; 51702; 96374; 99284; J0696; 81003; 81015; 87077; 87186